=== PATIENT | female | born 1980 | race Caucasian/White ===

== ENCOUNTER 2017-02-08 09:42 | Emergency (ER) | payer MEDICAID ==
[2017-02-08 09:48] VITALS: BP 141/70
--- NOTE | 2017-02-08 10:03 | ER Document Report ---
ED Extremity Problem, Lower - General Chief Complaint: Ankle Pain Stated Complaint: FALL/LEFT FOOT PAIN Notes: The patient is a 37-year-old female, past medical history chronic back pain, presents with left ankle pain after she twisted it last night. She noticed increased swelling this morning. She denies numbness, tingling, open wounds or other injuries. TRAVEL OUTSIDE OF THE [place] IN LAST 30 DAYS: No - Related Data Allergies/Adverse Reactions: iodine [Iodine] Allergy (Verified 02/08/17 09:48) Past Medical History - General Information source: Patient - Social History Smoking Status: Current Every Day Smoker Chew tobacco use (# tins/day): No Frequency of alcohol use: None Drug Abuse: None Family History: Arthritis, CVA, Hyperlipidemia, Hypertension Pulmonary Medical History: Reports: Hx Pneumonia Neurological Medical History: Reports: Hx Migraine Renal/ Medical History: Denies: Hx Peritoneal Dialysis Musculoskeltal Medical History: Reports Hx Musculoskeletal Trauma Psychiatric Medical History: Reports: Hx Depression - anxiety Traumatic Medical History: Reports: Hx Spine Fracture Past Surgical History: Reports: Hx Section, Hx Orthopedic Surgery - C5- 6 FUSION - Immunizations Immunizations up to date: Yes Hx Diphtheria, Pertussis, Tetanus Vaccination: Yes Review of Systems - Review of Systems Notes: REVIEW OF SYSTEMS: CONSTITUTIONAL: -fevers, -chills EENT: -eye pain, -difficulty swallowing, -nasal congestion CARDIOVASCULAR:-chest pain, -syncope. RESPIRATORY: -cough, -SOB GASTROINTESTINAL: -abdominal pain, - nausea, -vomiting, -diarrhea GENITOURINARY: -dysuria, -hematuria MUSCULOSKELETAL: +left ankle pain, -back pain, -neck pain SKIN: -rash or skin lesions. HEMATOLOGIC: -easy bruising or bleeding. LYMPHATIC: -swollen, enlarged glands. NEUROLOGICAL: -altered mental status or loss of consciousness, -headache, - neurologic symptoms PSYCHIATRIC: -anxiety, -depression. ALL OTHER SYSTEMS REVIEWED AND NEGATIVE. Physical Exam - Vital signs Vitals: Temp Pulse Resp BP Pulse Ox 97.8 F 91 20 141/70 H 98 02/08/17 09:47 02/08/17 09:47 02/08/17 09:47 02/08/17 09:47 02/08/17 09:47 - Notes Notes: PHYSICAL EXAMINATION: GENERAL: Well-appearing, well-nourished and in no acute distress. HEAD: Atraumatic, normocephalic. EYES: Pupils equal round and reactive to light, extraocular movements intact, sclera anicteric, conjunctiva are normal. ENT: nares patent, oropharynx clear without exudates. Moist mucous membranes. NECK: Normal range of motion, supple without lymphadenopathy LUNGS: Breath sounds clear to auscultation bilaterally and equal. No wheezes rales or rhonchi. HEART: Regular rate and rhythm without murmurs ABDOMEN: Soft, nontender, normoactive bowel sounds. No guarding, no rebound. No masses appreciated. EXTREMITIES: Moderate left lateral ankle swelling and tenderness, N/V intact distally, no pitting or edema. No cyanosis. NEUROLOGICAL: Cranial nerves grossly intact. Normal speech. Normal sensory, motor, and reflex exams. PSYCH: Normal mood, normal affect. SKIN: Warm, Dry, normal turgor, no rashes or lesions noted. Course - Vital Signs Vital signs: Temp Pulse Resp BP Pulse Ox 97.8 F 91 20 141/70 H 98 02/08/17 09:47 02/08/17 09:47 02/08/17 09:47 02/08/17 09:47 02/08/17 09:47 - Diagnostic Test Radiology reviewed: Image reviewed, Reports reviewed Radiology results interpreted by me: Left ankle x-ray: Soft tissue swelling, no fractures Procedures - Immobilization Left Ankle Pre-Proc Neuro Vasc Exam: Normal Immobilizer type: Carl wrap, Crutches Performed by: PCT Post-Proc Neuro Vasc Exam: Normal Alignment checked and good: Yes Discharge - Discharge Clinical Impression: Left ankle sprain Qualifiers: Encounter type: initial encounter Involved ligament of ankle: unspecified ligament Qualified Code(s): S93.402A - Sprain of unspecified ligament of left ankle, initial encounter Condition: Stable Disposition: HOME, SELF-CARE Additional Instructions: SPRAIN: Your injury is a sprain. A sprain results from stretching or tearing of the ligaments, usually from a twisting injury. The ligaments will require time and protection in order to heal properly. Many sprains are quite disabling and should be taken seriously. The usual initial treatment of sprains is cold packs, elevation, and rest of the injured area. Your physician has assessed the seriousness of your ligament injury, and has outlined a treatment plan. Understand that this treatment may change, depending on how you progress. If a re-examination was recommended, it is important that you follow up as instructed. Call the doctor any time if there is severe pain, numbness, or loss of function in the injured area. CARL WRAP: A compression dressing (carl wrap) has been placed. This helps hold the area still. It limits swelling and internal bleeding. The wrap should be comfortably snug -- not tight. You should feel a sense of pressure, but not severe pain under the wrap. Unless the physician tells you otherwise, you can adjust the wrap for comfort. If the wrap causes symptoms suggesting it's too tight -- uncomfortable pressure, swelling or discoloration beyond the wrap, numbness, or severe pain - - you must loosen the wrap. If these symptoms don't resolve promptly, return for re-evaluation. SPRAINED ANKLE: Your sprained ankle results from stretching or tearing of the ligaments which support the ankle. This usually results from twisting the foot inward and under. The ligaments will require time and protection in order to heal properly. Many ankle sprains are quite disabling, and should be taken seriously. The usual treatment for an ankle sprain is cold packs; protection with tape , splints, or wraps; elevation; and staying off the ankle for at least a day. As the ankle improves, you can walk IF it's not painful to bear weight. Sports are best postponed until healing is complete. More serious sprains usually require strengthening exercises after early healing. Your physician has assessed the seriousness of the ligament injury to your ankle. However, the treatment may change, depending on how your ankle progresses. If further exams were recommended, it is important that you follow through. Call the doctor if your foot becomes numb, painful, or severely swollen. SOFT ANKLE SPLINT: You are to wear a cloth ankle splint. This type of splint uses the strength of the fabric to keep the ankle from twisting. The splint can be worn over a sock, if it's more comfortable. If the splint has an adjustable strap, the strap should come up over the OUTER side of the ankle. This strap should be pulled tight enough so you can't turn your ankle in towards you -- it should hold your foot so the sole can't be turned towards at the other foot. You should start out slow. Like a new shoe, the splint may take some "breaking in." You will get blisters if you are too active at first. No ankle brace provides absolute protection. You must avoid activities which put your ankle at risk. Work on strengthening your ankle -- strength is your best protection against re-injury. Call the doctor if you can't do your normal activities in the ankle brace. USE OF CRUTCHES: The doctor has recommended that you not bear weight at this time. You will need to use crutches. Adjust the crutches so the tops come to about two inches under the armpit while you are standing upright. Use your hands -- not your armpits -- to support your weight. To get into a chair, support yourself with one crutch on the injured side. Hold the chair with the other hand, then lower yourself while putting all your weight on the good leg. Going up stairs is `good leg up, step up, then bring up crutches and bad leg.' Down stairs is `bad leg and crutches down, then bring good leg down.' If you develop numbness or swelling in an arm or hand, you are using the crutches incorrectly. Return if you are having any problems with the crutches. ICE & ELEVATION: Apply ice packs frequently against the painful area. Many different schedules are recommended, such as "20 minutes on, 20 minutes off" or "one hour ice, two hours rest." If you need to work, you may need to go longer between ice treatments. You should plan to have the area ice packed AT LEAST one- fourth of the time. The ice should be applied over the wrap, tape, or splint, or over a layer of cloth -- not directly against the skin. Some ice bags have a built-in cloth and can be put directly on the skin. Your injured part should be elevated as much as possible over the next 48 hours. Try to keep the injury above the level of the heart. Avoid use of the injured area. Elevation and rest will decrease the swelling. USE OF [id number] IBUPROFEN: Ibuprofen (Advil, Nuprin, Medipren, Motrin IB) is a medication for fever and pain control. In addition, it has anti- inflammatory effects which may be beneficial, especially in the treatment of injuries. It's best to take ibuprofen with food. Persons with ulcer disease or allergy to aspirin should notify their physician of this before taking ibuprofen. Ibuprofen can be given every four to six hours, for a total of four doses daily. Age Pain or fever dose Antiinflammatory dose 6-8 yr 200 mg (1 tab) 200 mg (1 tab) 9-11 yr 200 mg (1 tab) 200-400 mg (1-2 tab) 11-14 yr 200-400 mg (1-2 tab) 400 mg (2 tab) 15-adult 400 mg (2 tab) 600 mg (3 tab) FOLLOW-UP CARE: If you have been referred to a physician for follow-up care, call the physician s office for an appointment as you were instructed or within the next two days. If you experience worsening or a significant change in your symptoms, notify the physician immediately or return to the Emergency Department at any time for re-evaluation. Referrals: CARMEN BROCK, [employer] GR[employer] WORKER-C [Primary Care Provider] - Follow up as needed DAYANA BAIRD DO [ACTIVE STAFF] - Follow up as needed
[2017-02-08] MEDS ORDERED: NAPROXEN 250 MG TABLET PO ONE (10:33)
== END 2017-02-08 10:55 | disposition home or self-care (01) ==
LOC: ER 09:42
DX: S93.402A Sprain of unspecified ligament of left ankle, initial encounter (principal); M25.572 Pain in left ankle and joints of left foot; M54.9 Dorsalgia, unspecified; G89.29 Other chronic pain; X58.XXXA Exposure to other specified factors, initial encounter; F17.200 Nicotine dependence, unspecified, uncomplicated
CPT/HCPCS: 99283; 73610; J3490

== ENCOUNTER 2018-03-29 05:15 | Emergency (ER) | payer OTHER ==
--- NOTE | 2018-03-29 06:28 | ER Document Report ---
ED General - General Chief Complaint: Ear Pain Stated Complaint: EAR/NOSE/THROAT PAIN Time Seen by Provider: 03/29/18 06:10 Mode of Arrival: Ambulatory Information source: Patient Notes: 38-year-old female presents with complaints of left earache sinus drainage. Patient notes the symptoms occur whenever she gets a sunburn, states she was sunburn last week and then the sore throat and earache started. Patient notes the earache kept her up all night. She denies any fevers or chills nausea vomiting or diarrhea. TRAVEL OUTSIDE OF THE [place] IN LAST 30 DAYS: No - HPI Onset: Last week Onset/Duration: Persistent Quality of pain: Achy Severity: Mild Pain Level: 1 Associated symptoms: Earache, Sinus pain/drainage Exacerbated by: Other - Sunburn Relieved by: Denies Similar symptoms previously: Yes Recently seen / treated by doctor: No - Related Data Allergies/Adverse Reactions: iodine [Iodine] Allergy (Verified 03/29/18 05:16) Past Medical History - Social History Smoking Status: Never Smoker Cigarette use (# per day): No Chew tobacco use (# tins/day): No Smoking Education Provided: No Family History: Arthritis, CVA, Hyperlipidemia, Hypertension, Malignancy. denies: CAD, COPD, DM, Thyroid Disfunction Patient has suicidal ideation: No Patient has homicidal ideation: No Pulmonary Medical History: Reports: Hx Bronchitis, Hx Pneumonia Neurological Medical History: Reports: Hx Migraine Renal/ Medical History: Denies: Hx Peritoneal Dialysis Musculoskeltal Medical History: Reports Hx Arthritis, Reports Hx Musculoskeletal Trauma Psychiatric Medical History: Reports: Hx Anxiety, Hx Depression - anxiety Traumatic Medical History: Reports: Hx Spine Fracture Past Surgical History: Reports: Hx Section, Hx Neurologic Surgery, Hx Orthopedic Surgery - C5-6 FUSION - Immunizations Immunizations up to date: Yes Hx Diphtheria, Pertussis, Tetanus Vaccination: Yes Review of Systems - Review of Systems Notes: REVIEW OF SYSTEMS: CONSTITUTIONAL : Denies fever, chills, or sweats. Denies recent illness. EENT: Admits to earache admits sinus drainage CARDIOVASCULAR: Denies chest pain. Denies palpitations or racing or irregular heart beat. Denies ankle edema. RESPIRATORY: Denies cough, cold, or chest congestion. Denies shortness of breath, difficulty breathing, or wheezing. GASTROINTESTINAL: Denies abdominal pain or distention. Denies nausea, vomiting , or diarrhea. Denies blood in vomitus, stools, or per rectum. Denies black, tarry stools. Denies constipation. GENITOURINARY: Denies difficulty urinating, painful urination, burning, frequency, blood in urine, or discharge. FEMALE GENITOURINARY: Denies vaginal bleeding, heavy or abnormal periods, irregular periods. Denies vaginal discharge or odor. MUSCULOSKELETAL: Denies back or neck pain or stiffness. Denies joint pain or swelling. SKIN: Denies rash, lesions or sores. HEMATOLOGIC : Denies easy bruising or bleeding. LYMPHATIC: Denies swollen, enlarged glands. NEUROLOGICAL: Denies confusion or altered mental status. Denies passing out or loss of consciousness. Denies dizziness or lightheadedness. Denies headache. Denies weakness or paralysis or loss of use of either side. Denies problems with gait or speech. Denies sensory loss, numbness, or tingling. Denies seizures. PSYCHIATRIC: Denies anxiety or stress. Denies depression, suicidal ideation, or homicidal ideation. ALL OTHER SYSTEMS REVIEWED AND NEGATIVE. PHYSICAL EXAMINATION: GENERAL: Well-appearing, well-nourished and in no acute distress. HEAD: Atraumatic, normocephalic. EYES: Pupils equal round and reactive to light, extraocular movements intact, conjunctiva are normal. ENT: Nares patent, oropharynx clear without exudates. Moist mucous membranes. No mastoid tenderness NECK: Normal range of motion, supple without lymphadenopathy no masses LUNGS: Breath sounds clear to auscultation bilaterally and equal. No wheezes rales or rhonchi. HEART: Regular rate and rhythm without murmurs ABDOMEN: Soft, nontender, nondistended abdomen. No guarding, no rebound. No masses appreciated. Female : deferred Musculoskeletal: Normal range of motion, no pitting or edema. No cyanosis. NEUROLOGICAL: Cranial nerves grossly intact. Normal speech, normal gait. Normal sensory, motor exams PSYCH: Normal mood, normal affect. SKIN: Mild sun burn noted Dictation was performed using [employer] voice recognition software Physical Exam - Vital signs Vitals: Temp Pulse Resp BP Pulse Ox 98.8 F 73 16 111/58 L 98 03/29/18 06:35 03/29/18 06:35 03/29/18 06:35 03/29/18 06:35 03/29/18 06:35 Course - Re-evaluation Re-evalutation: 03/29/18 07:37 Patient's examination is completely benign, she is sleeping comfortably upon my evaluation of her, she requests pain control for her earache, I do not see any sign of infection, evaluation of her [place] drug database notes she has not received any narcotics or controlled substances After performing a Medical Screening Examination, I estimate there is LOW risk for malignant otitis media, mastoiditis, MENINGITIS, or ACUTE CORONARY SYNDROME , thus I consider the discharge disposition reasonable. I have reevaluated this patient multiple times and no significant life threatening changes are noted. The patient and I have discussed the diagnosis and risks, and we agree with discharging home to follow-up on an outpatient basis with the understanding that symptoms and presentations can change. We also discussed returning to the Emergency Department immediately if new or worsening symptoms occur. We have discussed the symptoms which are most concerning (e.g., high fevers, confusion) that necessitate immediate return. - Vital Signs Vital signs: Temp Pulse Resp BP Pulse Ox 98.8 F 73 16 111/58 L 98 03/29/18 06:35 03/29/18 06:35 03/29/18 06:35 03/29/18 06:35 03/29/18 06:35 Discharge - Discharge Clinical Impression: Ear pain, left, Sunburn Condition: Stable Disposition: HOME, SELF-CARE Additional Instructions: Please follow up immediately if there are any other concerns Prescriptions: Tramadol HCl 50 mg PO Q8 #10 tablet Referrals: MINESH JONES PA-C [Primary Care Provider] - Follow up as needed
[2018-03-29 06:36] VITALS: BP 111/58
== END 2018-03-29 06:36 | disposition home or self-care (01) ==
LOC: ER 05:15
DX: H92.02 Otalgia, left ear (principal); L55.9 Sunburn, unspecified; Z98.1 Arthrodesis status
CPT/HCPCS: 99282

== ENCOUNTER 2018-06-24 11:48 | Emergency (ER) | payer OTHER ==
[2018-06-24] MEDS ORDERED: ASPIRIN 81 MG TABLET, CHEWABLE PO ONE (12:18)
[2018-06-24] MEDS ORDERED: NORMAL SALINE 1000 ML 1,000 ML IV PRN (12:19)
--- NOTE | 2018-06-24 12:21 | ER Document Report ---
ED Medical Screen (RME) - General Chief Complaint: Headache Stated Complaint: HEADACHE, WEAK Time Seen by Provider: 06/24/18 12:18 Notes: 38 years old female presents today with history of lightheadedness and dizziness general weakness and malaise since last Friday. She had a skin biopsy done on Friday and was given lidocaine with epi. She is nauseous but no vomiting. On and off chest pain with difficulty in breathing. Denies any fever chills or other constitutional symptoms. Denies any dysuria frequency urgency. On examination-appears weak. Otherwise normal exam TRAVEL OUTSIDE OF THE [place] IN LAST 30 DAYS: No - Related Data Allergies/Adverse Reactions: iodine [Iodine] Allergy (Verified 03/29/18 05:16) Past Medical History - Social History Chew tobacco use (# tins/day): No Frequency of alcohol use: None Drug Abuse: None Pulmonary Medical History: Reports: Hx Bronchitis, Hx Pneumonia Neurological Medical History: Reports: Hx Migraine Renal/ Medical History: Denies: Hx Peritoneal Dialysis Musculoskeltal Medical History: Reports Hx Arthritis, Reports Hx Musculoskeletal Trauma Psychiatric Medical History: Reports: Hx Anxiety, Hx Depression - anxiety Traumatic Medical History: Reports: Hx Spine Fracture Past Surgical History: Reports: Hx Section, Hx Neurologic Surgery, Hx Orthopedic Surgery - C5-6 FUSION - Immunizations Immunizations up to date: Yes Hx Diphtheria, Pertussis, Tetanus Vaccination: Yes Physical Exam - Vital signs Vitals: Temp Pulse Resp BP Pulse Ox 98.0 F 75 16 128/89 H 97 06/24/18 11:59 06/24/18 11:59 06/24/18 11:59 06/24/18 11:59 06/24/18 11:59 Course - Vital Signs Vital signs: Temp Pulse Resp BP Pulse Ox 98.0 F 75 16 128/89 H 97 06/24/18 11:59 06/24/18 11:59 06/24/18 11:59 06/24/18 11:59 06/24/18 11:59 Doctor's Discharge - Discharge Referrals: MINESH JONES PA-C [Primary Care Provider] - Follow up as needed
[2018-06-24 13:16] LABS: ABSOLUTE BASOPHILS # (AUTO) 0.1 10^3/uL (0.0-0.2); ABSOLUTE EOSINOPHILS # (AUTO) 0.3 10^3/uL (0.0-0.6); ABSOLUTE LYMPHOCYTES (AUTO) 2.4 10^3/uL (0.5-4.7); ABSOLUTE MONOCYTES (AUTO) 0.4 10^3/uL (0.1-1.4); ABSOLUTE NEUT (AUTO) 5.9 10^3/uL (1.7-8.2); BASOPHILS % (AUTO) 0.6 % (0-2); EOSINOPHILS % (AUTO) 3.7 % (0-6); HEMATOCRIT 48.9 % (36.0-47.0); HEMOGLOBIN 16.7 g/dL (12.0-15.5); LYMPHOCYTES % (AUTO) 26.4 % (13-45); MEAN CORPUSCULAR HEMOGLOBIN 31.5 pg (27.0-33.4); MEAN CORPUSCULAR HGB CONC 34.1 g/dL (32.0-36.0); MEAN CORPUSCULAR VOLUME 92 fl (80-97); MONOCYTES % (AUTO) 4.9 % (3-13); PLATELET COUNT 250 10^3/uL (150-450); RED CELL DISTRIBUTION WIDTH 12.9 % (11.5-14.0); SEGMENTED NEUTROPHILS % (AUTO) 64.4 % (42-78); TOTAL CELLS COUNTED % (AUTO) 100 %; WHITE BLOOD COUNT 9.1 10^3/uL (4.0-10.5)
[2018-06-24 13:33] LABS: ALANINE AMINOTRANSFERASE 22 U/L (9-52); ALBUMIN 4.4 g/dL (3.5-5.0); ALKALINE PHOSPHATASE 67 U/L (38-126); ANION GAP 12 (5-19); ASPARTATE AMINO TRANSFERASE 23 U/L (14-36); BILIRUBIN,DIRECT 0.2 mg/dL (0.0-0.4); BILIRUBIN,TOTAL 0.8 mg/dL (0.2-1.3); BLOOD UREA NITROGEN 12 mg/dL (7-20); CALCIUM 9.7 mg/dL (8.4-10.2); CARBON DIOXIDE 27 mmol/L (22-30); CHLORIDE 106 mmol/L (98-107); CREATINE KINASE 81 U/L (30-135); GLUCOSE 93 mg/dL (75-110); POTASSIUM 4.2 mmol/L (3.6-5.0); SODIUM 145.3 mmol/L (137-145); TOTAL PROTEIN 7.8 g/dL (6.3-8.2)
[2018-06-24 13:44] LABS: CREATINE KINASE MB 0.66 ng/mL (<4.55)
[2018-06-24 13:45] LABS: TROPONIN I < 0.012 ng/mL
[2018-06-24] MEDS ORDERED: NORMAL SALINE 1000 ML 1,000 ML IV ONE (14:16)
--- NOTE | 2018-06-24 14:36 | RADIOLOGY REPORT (SQ) ---
EXAM DESCRIPTION: CHEST SINGLE VIEW COMPLETED DATE/TIME: 06/24/2018 2:25 pm REASON FOR STUDY: Chest pain COMPARISON: 01/27/2017. EXAM PARAMETERS: NUMBER OF VIEWS: One view. TECHNIQUE: Single frontal radiographic view of the chest acquired. RADIATION DOSE: NA LIMITATIONS: None. FINDINGS: LUNGS AND PLEURA: No opacities, masses or pneumothorax. No pleural effusion. MEDIASTINUM AND HILAR STRUCTURES: No masses. Contour normal. HEART AND VASCULAR STRUCTURES: Heart normal in size. Normal vasculature. BONES: No acute findings. HARDWARE: None in the chest. OTHER: No other significant finding. IMPRESSION: NO ACUTE RADIOGRAPHIC FINDING IN THE CHEST. TECHNICAL DOCUMENTATION: JOB ID: [id number] [employer]- All Rights Reserved Reading location - IP/workstation name: [email or web address]
[2018-06-24 16:21] LABS: APPEARANCE,URINE SLIGHTLY-CLOUDY; BILIRUBIN,URINE NEGATIVE (NEGATIVE); GLUCOSE, URINE NEGATIVE (NEGATIVE); KETONES,URINE NEGATIVE (NEGATIVE); LEUKOCYTE ESTERASE,URINE NEGATIVE (NEGATIVE); NITRITE,URINE NEGATIVE (NEGATIVE); PROTEIN,URINE NEGATIVE (NEGATIVE); URINE SPECIFIC GRAVITY 1.027; UROBILINOGEN,URINE NEGATIVE mg/dL (<2.0)
[2018-06-24 16:27] LABS: COLOR,URINE YELLOW
[2018-06-24 16:34] LABS: URINE AMPHETAMINES SCREEN UNCONFIRMED POSITIVE; URINE BARBITURATES SCREEN NEGATIVE; URINE BENZODIAZEPINES SCREEN NEGATIVE; URINE COCAINE SCREEN NEGATIVE; URINE MARIJUANA (THC) SCREEN NEGATIVE; URINE METHADONE SCREEN NEGATIVE; URINE PHENCYCLIDINE SCREEN NEGATIVE
--- NOTE | 2018-06-24 16:48 | ER Document Report ---
ED General - General Chief Complaint: Headache Stated Complaint: HEADACHE, WEAK Time Seen by Provider: 06/24/18 12:18 TRAVEL OUTSIDE OF THE [place] IN LAST 30 DAYS: No - HPI Patient complains to provider of: Headache weakness Notes: Overall home is patient states she has skin biopsy performed on her forehead on Friday since that time is feeling weak with a headache. Patient states she was given lidocaine with epinephrine. Patient denies any fever chills nausea vomiting diarrhea. Patient resting comfortably upon my evaluation patient states that she has been on phentermine and states that her PCP thinks that this may have a possible reaction. Patient otherwise denies any other symptoms recent travel recent antibiotics. - Related Data Allergies/Adverse Reactions: iodine [Iodine] Allergy (Verified 03/29/18 05:16) Past Medical History - Social History Smoking Status: Never Smoker Chew tobacco use (# tins/day): No Frequency of alcohol use: None Drug Abuse: None Family History: Arthritis, CVA, Hyperlipidemia, Hypertension, Malignancy. denies: CAD, COPD, DM, Thyroid Disfunction Patient has suicidal ideation: No Patient has homicidal ideation: No Pulmonary Medical History: Reports: Hx Bronchitis, Hx Pneumonia Neurological Medical History: Reports: Hx Migraine Renal/ Medical History: Denies: Hx Peritoneal Dialysis Musculoskeletal Medical History: Reports Hx Arthritis, Reports Hx Musculoskeletal Trauma Psychiatric Medical History: Reports: Hx Anxiety, Hx Depression - anxiety Traumatic Medical History: Reports: Hx Spine Fracture Past Surgical History: Reports: Hx Section, Hx Neurologic Surgery, Hx Orthopedic Surgery - C5-6 FUSION - Immunizations Immunizations up to date: Yes Hx Diphtheria, Pertussis, Tetanus Vaccination: Yes Review of Systems - Review of Systems Constitutional: Weakness EENT: No symptoms reported Cardiovascular: No symptoms reported Respiratory: No symptoms reported Gastrointestinal: No symptoms reported Genitourinary: No symptoms reported Female Genitourinary: No symptoms reported Musculoskeletal: No symptoms reported Skin: No symptoms reported Hematologic/Lymphatic: No symptoms reported Neurological/Psychological: No symptoms reported, Headaches -: Yes All other systems reviewed and negative Physical Exam - Vital signs Vitals: Temp Pulse Resp BP Pulse Ox 98.0 F 75 16 128/89 H 97 06/24/18 11:59 06/24/18 11:59 06/24/18 11:59 06/24/18 11:59 06/24/18 11:59 Interpretation: Normal - General General appearance: Appears well, Alert - HEENT Head: Normocephalic, Atraumatic Eyes: Normal Pupils: PERRL - Respiratory Respiratory status: No respiratory distress Chest status: Nontender Breath sounds: Normal Chest palpation: Normal - Cardiovascular Rhythm: Regular Heart sounds: Normal auscultation Murmur: No - Abdominal Inspection: Normal Distension: No distension Bowel sounds: Normal Tenderness: Nontender Organomegaly: No organomegaly - Back Back: Normal, Nontender - Extremities General upper extremity: Normal inspection, Nontender, Normal color, Normal ROM , Normal temperature General lower extremity: Normal inspection, Nontender, Normal color, Normal ROM , Normal temperature, Normal weight bearing. No: Haley's sign - Neurological Neuro grossly intact: Yes Cognition: Normal Orientation: AAOx4 Tessy Coma Scale Eye Opening: Spontaneous Tessy Coma Scale Verbal: Oriented Tessy Coma Scale Motor: Obeys Commands Tessy Coma Scale Total: 15 Speech: Normal Motor strength normal: LUE, RUE, LLE, RLE Sensory: Normal - Psychological Associated symptoms: Normal affect, Normal mood - Skin Skin Temperature: Warm Skin Moisture: Dry Skin Color: Normal Course - Re-evaluation Re-evalutation: 06/24/18 23:08 Laboratory studies should hemoconcentration otherwise no critical pathology seen. Patient was educated about phentermine use and recommended that she discuss phentermine use with her physician further. Patient states understanding feeling better after IV fluids. Patient will be discharged home. - Vital Signs Vital signs: Temp Pulse Resp BP Pulse Ox 98.0 F 75 16 126/84 H 100 06/24/18 17:07 06/24/18 17:07 06/24/18 11:59 06/24/18 17:07 06/24/18 17:07 - Laboratory Result Diagrams: 06/24/18 13:00 06/24/18 13:00 Laboratory results interpreted by me: 06/24/18 06/24/18 13:00 13:00 RBC 5.30 H Hgb 16.7 H Hct 48.9 H Sodium 145.3 H Discharge - Discharge Clinical Impression: Weakness, Dehydration Condition: Good Disposition: HOME, SELF-CARE Instructions: Dehydration ([facility]), Weakness ([facility]) Additional Instructions: Your evaluation today shows no critical pathology except for slight dehydration. I recommend she follow-up with her primary care physician. Please make sure drinking plenty of fluids to stay well hydrated. Return to ER symptoms worsen. Forms: Return to Work Referrals: MINESH JONES PA-C [ALLIED HEALTH PROFESSIONAL] - Follow up as needed
[2018-06-24 17:10] VITALS: BP 126/84
--- NOTE | 2018-06-24 21:29 | EKG REPORT ---
SEVERITY:- NORMAL ECG - SINUS RHYTHM : Confirmed by: Ofelia Bryant MD 24-Jun-2018 21:29:18
== END 2018-06-24 17:41 | disposition home or self-care (01) ==
LOC: ER 11:48
DX: E86.0 Dehydration (principal); R51 Headache; R53.1 Weakness; Z98.890 Other specified postprocedural states; Z79.899 Other long term (current) drug therapy
CPT/HCPCS: 93005; 99284; 96360; 96361; 36415; 82553; 82550; 84703; 85025; 80053; 81001; 84484; 80307; 85379; 71045; 93010; J7030

== ENCOUNTER 2019-02-27 07:52 | Emergency (ER) | payer OTHER ==
[2019-02-27] MEDS ORDERED: ASPIRIN 81 MG TABLET, CHEWABLE PO ONE (08:27)
--- NOTE | 2019-02-27 08:56 | ER Document Report ---
ED Cardiac - General Chief Complaint: Chest Pain Stated Complaint: CHEST PAIN Time Seen by Provider: 02/27/19 08:33 Primary Care Provider: DEMETRICE ROTHMAN PA-C [NO LOCAL MD] - Follow up as needed Mode of Arrival: Ambulatory Information source: Patient TRAVEL OUTSIDE OF THE [place] IN LAST 30 DAYS: No - HPI Patient complains to provider of: Chest pain, Other - Right ear pain, throat pain Notes: Patient is here with multiple complaints. 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 She states that yesterday she developed some pain in her right ear and occasional pain in the right side of her throat with swallowing. This morning she started coughing a lot and since she has been coug rebekah, she has developed sharp pain in the right upper chest. She denies any shortness of breath. No syncope. She states that she felt like she may have had a fever yesterday, but she reports that it was only 99. She denies any difficulty breathing or swallowing. No abdominal pain. No nausea, vomiting, diarrhea. The pain in her chest is intermittent, sharp, moderate, worse with cough. The pain in her ear is constant, mild, worse with swallowing. Nothing in particular makes symptoms better. She denies any rash. She is a former smoker. She denies drug use. She denies a history of hypertension, high cholesterol, diabetes, CAD. She has family history of CAD. She denies any recent long trips or surgeries, leg pain or leg swelling, hormone use, cancer, history of DVT or PE. No other complaints at this moment. - Related Data Allergies/Adverse Reactions: iodine [Iodine] Allergy (Verified 02/27/19 07:52) Past Medical History - Social History Smoking Status: Former Smoker Family History: Arthritis, CVA, Hyperlipidemia, Hypertension, Malignancy. denies: CAD, COPD, DM, Thyroid Disfunction Pulmonary Medical History: Reports: Hx Bronchitis, Hx Pneumonia Neurological Medical History: Reports: Hx Migraine Renal/ Medical History: Denies: Hx Peritoneal Dialysis Musculoskeletal Medical History: Reports Hx Arthritis, Reports Hx Musculoskeleta l Trauma Psychiatric Medical History: Reports: Hx Anxiety, Hx Depression - anxiety Traumatic Medical History: Reports: Hx Spine Fracture Past Surgical History: Reports: Hx Section, Hx Neurologic Surgery, Hx Orthopedic Surgery - C5-6 FUSION - Immunizations Immunizations up to date: Yes Hx Diphtheria, Pertussis, Tetanus Vaccination: Yes Review of Systems - Review of Systems -: Yes All other systems reviewed and negative Physical Exam - Vital signs Vitals: Temp Pulse Resp BP Pulse Ox 97.5 F 73 16 138/87 H 98 02/27/19 07:56 02/27/19 07:56 02/27/19 07:56 02/27/19 07:56 02/27/19 07:56 - Notes Notes: GENERAL: alert, cooperative, nontoxic, no distress. HEAD: normocephalic, atraumatic EYES: conjunctiva pink without discharge, no external redness or swelling. EARS: no external swelling, no external redness, no mastoid redness, swelling, tenderness. Ear canals are clear without swelling or drainage. TMs pearly terrazas, no redness, no bulging, normal landmarks, no perforation. Clear effusion behind both TMs. NOSE: atraumatic, no external swelling. clear rhinorrhea noted. MOUTH/THROAT: mucous membranes moist and pink, posterior pharynx without dawna thema, swelling, exudate. No trismus or drooling. NECK: soft, supple, full range of motion, no meningismus. CHEST: no distress, lungs clear and equal throughout. No wheezing, rales, rhonchi. Right upper anterior chest wall tenderness to palpation. CARDIAC: regular rate and rhythm, no murmur, normal capillary refill, normal pulses. No peripheral edema noted. BACK: full range of motion, no CVA tenderness. EXTREMITIES: full range of motion of all extremities. No redness, no swelling. NEURO: alert and oriented A&O3, no focal deficits, full range of motion of all extremities. PYSCH: appropriate mood, affect. Patient is cooperative. SKIN: pink, warm, dry, no rash. Course - Re-evaluation Re-evalutation: 02/27/19 08:55 Patient has no risk factors for pulmonary embolism. Wells criteria for PE is negative. PERC rule negative for PE. 02/27/19 10:25 Patient is resting comfortably at this time. Heart score is 1. This makes her low risk for MACE. Currently troponin negative, chest x-ray negative, EKG normal. We will repeat a troponin, if this is negative, believe that the patient can be discharged home. This point the pain is reproducible with palpation of the right upper chest wall and worse with cough and seems to be musculoskeletal in nature. I have ordered her some Toradol. I have gone over results with the patient and the plan. She verbalized understanding. 02/27/19 13:43 Patient is nontoxic-appearing with stable vitals. She continues to be resting comfortably at this time. I have gone over all of her results. Questions been answered. Patient here with complaints of right-sided chest pain that started this morning after coughing. No significant shortness of breath. She was also complained of some ear pain and sore throat. Rapid strep is negative. She is noted to have effusion behind her TMs. She has right sided reproducible chest wall tenderness to palpation. Lungs are clear. Vitals are stable. She is not hypoxic or tachypneic. EKG is normal. Troponin is negative. Delta troponin is negative. The remainder of her labs are unremarkable. Patient has no PE risk factors, PERC rule negative for PE, heart score is 1. Pain seems to be muscular skeletal nature likely from coughing. At this point believe the patient can be discharged home with a prescription for Naprosyn and Tessalon. Instructions to follow-up with her primary care doctor at the next available appointment for reevaluation. Follow-up sooner for worsening pain, fever, difficulty breathing or swallowing, persistent vomiting, or for any further concerns. The patient's emergency department workup and current diagnosis were explained to the patient and or family. Follow-up instructions were provided. Me dications if prescribed were discussed. Instructions for when to return to the emergency department including specific worrisome symptoms were discussed with the patient and/or family. - Vital Signs Vital signs: Temp Pulse Resp BP Pulse Ox 97.5 F 73 20 119/69 99 02/27/19 07:56 02/27/19 07:56 02/27/19 13:01 02/27/19 13:01 02/27/19 13:01 - Laboratory Result Diagrams: 02/27/19 09:02 02/27/19 09:02 Laboratory results interpreted by me: 02/27/19 09:02 Chloride 109 H - Diagnostic Test Radiology reviewed: Image reviewed, Reports reviewed - Negative chest x-ray - EKG Interpretation by Me EKG shows normal: Sinus rhythm, [place], Intervals, QRS Complexes, ST-T Waves Rate: Normal When compared to previous EKG there are: Other - Rate of 69. No STEMI. Discharge - Discharge Clinical Impression: Chest pain Qualifiers: Chest pain type: unspecified Qualified Code(s): R07.9 - Chest pain, unspecified URI (upper respiratory infection) Qualifiers: URI type: unspecified viral URI Qualified Code(s): J06.9 - Acute upper respiratory infection, unspecified Condition: Stable Disposition: HOME, SELF-CARE Instructions: Upper Respiratory Illness ([facility]), Chest Pain of Unclear Cause ([facility]) Additional Instructions: Take medication as prescribed. Drink plenty fluids. Follow-up with your primary care doctor at the next available appointment for reevaluation. Follow- up sooner for worsening pain, fever, significant trouble breathing, or for any further concerns. Prescriptions: Benzonatate [Tessalon [place] 100 mg Capsule] 100 mg PO Q8HP PRN #20 cap PRN Reason: Naproxen [Naprosyn] 500 mg PO BID #20 tablet Referrals: DEMETRICE ROTHMAN PA-C [NO LOCAL MD] - Follow up as needed
--- NOTE | 2019-02-27 08:58 | RADIOLOGY REPORT (SQ) ---
EXAM DESCRIPTION: CHEST SINGLE VIEW COMPLETED DATE/TIME: 02/27/2019 8:46 am REASON FOR STUDY: cp COMPARISON: 2017 NUMBER OF VIEWS: One view. TECHNIQUE: Single frontal radiographic view of the chest acquired. LIMITATIONS: None. FINDINGS: LUNGS AND PLEURA: No opacities, masses or pneumothorax. No pleural effusion. MEDIASTINUM AND HILAR STRUCTURES: No masses. Contour normal. HEART AND VASCULAR STRUCTURES: Heart normal in size. Normal vasculature. BONES: No acute findings. HARDWARE: None in the chest. OTHER: No other significant finding. IMPRESSION: NO SIGNIFICANT RADIOGRAPHIC FINDING IN THE CHEST. TECHNICAL DOCUMENTATION: JOB ID: [id number] [employer]- All Rights Reserved Reading location - IP/workstation name: [email or web address]
[2019-02-27 09:16] LABS: ABSOLUTE BASOPHILS # (AUTO) 0.1 10^3/uL (0.0-0.2); ABSOLUTE EOSINOPHILS # (AUTO) 0.2 10^3/uL (0.0-0.6); ABSOLUTE LYMPHOCYTES (AUTO) 1.9 10^3/uL (0.5-4.7); ABSOLUTE MONOCYTES (AUTO) 0.4 10^3/uL (0.1-1.4); BASOPHILS % (AUTO) 0.7 % (0-2); EOSINOPHILS % (AUTO) 3.1 % (0-6); HEMATOCRIT 41.6 % (36.0-47.0); HEMOGLOBIN 14.3 g/dL (12.0-15.5); LYMPHOCYTES % (AUTO) 25.3 % (13-45); MEAN CORPUSCULAR HEMOGLOBIN 31.8 pg (27.0-33.4); MEAN CORPUSCULAR HGB CONC 34.4 g/dL (32.0-36.0); MEAN CORPUSCULAR VOLUME 92 fl (80-97); MONOCYTES % (AUTO) 4.9 % (3-13); PLATELET COUNT 204 10^3/uL (150-450); RED CELL DISTRIBUTION WIDTH 12.5 % (11.5-14.0); TOTAL CELLS COUNTED % (AUTO) 100 %; WHITE BLOOD COUNT 7.6 10^3/uL (4.0-10.5)
[2019-02-27 09:38] LABS: ALANINE AMINOTRANSFERASE 25 U/L (9-52); ALBUMIN 3.8 g/dL (3.5-5.0); ALKALINE PHOSPHATASE 47 U/L (38-126); ANION GAP 5 (5-19); ASPARTATE AMINO TRANSFERASE 28 U/L (14-36); BILIRUBIN,DIRECT 0.2 mg/dL (0.0-0.4); BILIRUBIN,TOTAL 0.7 mg/dL (0.2-1.3); BLOOD UREA NITROGEN 15 mg/dL (7-20); CALCIUM 8.9 mg/dL (8.4-10.2); CARBON DIOXIDE 26 mmol/L (22-30); CHLORIDE 109 mmol/L (98-107); CREATINE KINASE 129 U/L (30-135); GLUCOSE 91 mg/dL (75-110); POTASSIUM 3.9 mmol/L (3.6-5.0); SODIUM 140.4 mmol/L (137-145); TOTAL PROTEIN 6.9 g/dL (6.3-8.2)
[2019-02-27 09:48] LABS: CREATINE KINASE MB 2.16 ng/mL (<4.55)
[2019-02-27 09:49] LABS: TROPONIN I < 0.012 ng/mL
[2019-02-27] MEDS ORDERED: KETOROLAC TROMETHAMINE 60 MG/2 ML SDV IV ONE (10:24)
--- NOTE | 2019-02-27 13:12 | EKG REPORT ---
SEVERITY:- NORMAL ECG - SINUS RHYTHM : Confirmed by: Christopher Lay 27-Feb-2019 13:12:04
[2019-02-27 13:36] VITALS: BP 119/69
== END 2019-02-27 14:04 | disposition home or self-care (01) ==
LOC: ER 07:52
DX: R07.9 Chest pain, unspecified (principal); J06.9 Acute upper respiratory infection, unspecified; H92.01 Otalgia, right ear; J02.9 Acute pharyngitis, unspecified; J34.89 Other specified disorders of nose and nasal sinuses; Z87.891 Personal history of nicotine dependence; Z82.49 Family history of ischemic heart disease and other diseases of the circulatory system; Z88.8 Allergy status to other drugs, medicaments and biological substances
CPT/HCPCS: 93005; 99284; 96374; 36415; 87070; 82553; 87880; 82550; 85025; 80053; 84484; 71045; 93010; J1885

== ENCOUNTER 2019-06-28 16:39 | Emergency (ER) | payer OTHER ==
[2019-06-28] MEDS ORDERED: IBUPROFEN 600 MG TABLET PO ONE (17:03)
[2019-06-28 17:06] VITALS: BP 126/78
--- NOTE | 2019-06-28 17:07 | ER Document Report ---
HPI - HPI Time Seen by Provider: 06/28/19 17:00 Pain Level: 2 Notes: Patient is an otherwise healthy 39-year-old female presenting to the emergency department chief complaint of left ankle pain. Patient reports she was walking through his sandpit when she excellently stepped into a hole twisting her ankle. She reports significant pain and swelling at the site. - REPRODUCTIVE Reproductive: DENIES: : Past Medical History - General Information source: Patient - Social History Smoking Status: Never Smoker Frequency of alcohol use: None Drug Abuse: None Family History: Arthritis, CVA, Hyperlipidemia, Hypertension, Malignancy. denies: CAD, COPD, DM, Thyroid Disfunction Pulmonary Medical History: Reports: Hx Bronchitis, Hx Pneumonia Neurological Medical History: Reports: Hx Migraine Renal/ Medical History: Denies: Hx Peritoneal Dialysis Musculoskeletal Medical History: Reports Hx Arthritis, Reports Hx Musculoskeletal Trauma Psychiatric Medical History: Reports: Hx Anxiety, Hx Depression - anxiety Traumatic Medical History: Reports: Hx Spine Fracture Past Surgical History: Reports: Hx Section, Hx Neurologic Surgery, Hx Orthopedic Surgery - C5-6 FUSION - Immunizations Immunizations up to date: Yes Hx Diphtheria, Pertussis, Tetanus Vaccination: Yes Vertical Provider Document - CONSTITUTIONAL Notes: PHYSICAL EXAMINATION: GENERAL: Well-appearing, well-nourished and in no acute distress. HEAD: Atraumatic, normocephalic. EYES: Pupils equal round extraocular movements intact, conjunctiva are normal. ENT: Nares patent NECK: Normal range of motion LUNGS: No respiratory distress Musculoskeletal: Limited range of motion to left ankle, swelling noted to left lateral ankle, cap refill less than 3 seconds, normal sensation distal to injury, strong dorsalis pedis pulse. NEUROLOGICAL: Normal speech, normal gait. PSYCH: Normal mood, normal affect. SKIN: Warm, Dry, normal turgor, no rashes or lesions noted. - INFECTION CONTROL TRAVEL OUTSIDE OF THE [place] IN LAST 30 DAYS: No Course - Re-evaluation Re-evalutation: Ankle X-Ray 06/28/19 17:03 IMPRESSION: No evidence of acute osseous injury. Procedures - Immobilization Left Ankle Immobilizer type: Ankle stirrup, Crutches Performed by: Provider Post-Proc Neuro Vasc Exam: Normal Alignment checked and good: Yes Discharge - Discharge Clinical Impression: Ankle sprain Qualifiers: Encounter type: initial encounter Involved ligament of ankle: unspecified ligament Laterality: left Qualified Code(s): S93.402A - Sprain of unspecified ligament of left ankle, initial encounter Condition: Stable Disposition: HOME, SELF-CARE Additional Instructions: Your x-ray does not show any acute fracture. You have a sprained ankle. Keep the area elevated, apply ice 20 minutes every 2 hours, and use crutches as needed. You should take ibuprofen 600 mg every 6 hours as needed for pain. Please return if you have worsening pain and swelling, fever greater than 101, you notice spreading redness from the area, or have any other symptoms that are concerning to you. Please follow-up with orthopedic surgery if your symptoms have not improved in the next 2-3 weeks. Forms: Return to Work Referrals: AARTI PRESLEY PA-C [Primary Care Provider] - Follow up as needed
--- NOTE | 2019-06-28 17:28 | RADIOLOGY REPORT (SQ) ---
EXAM DESCRIPTION: ANKLE LEFT COMPLETE COMPLETED DATE/TIME: 06/28/2019 5:15 pm REASON FOR STUDY: left ankle pain s/p injury COMPARISON: 02/08/2017 NUMBER OF VIEWS: Three views. TECHNIQUE: AP, lateral, and oblique radiographic images acquired of the left ankle. LIMITATIONS: None. FINDINGS: MINERALIZATION: Normal. BONES: No acute fracture or dislocation. No worrisome bone lesions. Incidental note is again made o f an ossicle adjacent to the distal fibula, consistent with sequela of remote trauma. 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 Tibiotalar degenerative changes are present. JOINTS: No effusions. SOFT TISSUES: No soft tissue swelling. No foreign body. OTHER: No other significant finding. IMPRESSION: No evidence of acute osseous injury. TECHNICAL DOCUMENTATION: JOB ID: [id number] [employer]- All Rights Reserved Reading location - IP/workstation name: [email or web address]
== END 2019-06-28 18:12 | disposition home or self-care (01) ==
LOC: ER 16:39
DX: S93.402A Sprain of unspecified ligament of left ankle, initial encounter (principal); X50.1XXA Overexertion from prolonged static or awkward postures, initial encounter; Y92.007 Garden or yard of unspecified non-institutional (private) residence as the place of occurrence of the external cause
CPT/HCPCS: 99283; 73610; L1902

== ENCOUNTER 2019-08-06 14:25 | Emergency (ER) | payer OTHER ==
[2019-08-06 14:30] VITALS: BP 134/75
[2019-08-06] MEDS ORDERED: LIDOCAINE 1% INJ-PF (10 MG/ML) 30 ML SDV INJ ONE (15:00)
[2019-08-06] MEDS ORDERED: DEXAMETHASONE SOD PHOS INJ 10 MG/1 ML VIAL IM ONE (15:00)
[2019-08-06] MEDS ORDERED: CEFTRIAXONE INJ 1000 MG VIAL IM ONE (15:00)
--- NOTE | 2019-08-06 15:06 | ER Document Report ---
HPI - HPI Time Seen by Provider: 08/06/19 14:41 Pain Level: 4 Context: Patient is a 39-year-old female who presents to the emergency department with a chief complaint of right ear pain. She states that she was diagnosed with acute otitis media about 7 days ago. She is currently on Augmentin. Patient states that she has been coughing and her symptoms are not any better. - CONSTITUTIONAL Constitutional: REPORTS: Fever. DENIES: Chills - EENT EENT: REPORTS: Sore Throat, Ear Pain, Nasal Drainage-Clear, Congestion - CARDIOVASCULAR Cardiovascular: DENIES: Chest pain - RESPIRATORY Respiratory: REPORTS: Coughing. DENIES: Trouble Breathing - GASTROINTESTINAL Gastrointestinal: DENIES: Abdominal Pain, Nausea, Patient vomiting - REPRODUCTIVE Reproductive: DENIES: : - MUSCULOSKELETAL Musculoskeletal: DENIES: Extremity pain - DERM Skin Color: Normal Skin Problems: None Past Medical History - Social History Smoking Status: Never Smoker Family History: Arthritis, CVA, Hyperlipidemia, Hypertension, Malignancy. denies: CAD, COPD, DM, Thyroid Disfunction Pulmonary Medical History: Reports: Hx Bronchitis, Hx Pneumonia Neurological Medical History: Reports: Hx Migraine Renal/ Medical History: Denies: Hx Peritoneal Dialysis Musculoskeletal Medical History: Reports Hx Arthritis, Reports Hx Musculoskeletal Trauma Psychiatric Medical History: Reports: Hx Anxiety, Hx Depression - anxiety Traumatic Medical History: Reports: Hx Spine Fracture Past Surgical History: Reports: Hx Section, Hx Neurologic Surgery, Hx Orthopedic Surgery - C5-6 FUSION - Immunizations Immunizations up to date: Yes Hx Diphtheria, Pertussis, Tetanus Vaccination: Yes Vertical Provider Document - CONSTITUTIONAL Agree With Documented VS: Yes Exam Limitations: No Limitations General Appearance: No Apparent Distress - INFECTION CONTROL TRAVEL OUTSIDE OF THE [place] IN LAST 30 DAYS: No - HEENT HEENT: Atraumatic, PERRLA, Tympanic Membrane Red - Purulent drainage noted behind tympanic membrane. negative: Pharyngeal Exudate, Pharyngeal Erythema, Tympanic Membrane Bulging Notes: Nasal mucosa erythema and edema - NECK Neck: Normal Inspection - RESPIRATORY Respiratory: Breath Sounds Normal, No Respiratory Distress - CARDIOVASCULAR Cardiovascular: Regular Rate, Regular Rhythm Pulses: Normal: Radial - GI/ABDOMEN Gastrointestinal: Abdomen Soft - MUSCULOSKELETAL/EXTREMETIES Musculoskeletal/Extremeties: FROM - NEURO Level of Consciousness: Awake, Alert, Appropriate Motor/Sensory: No Motor Deficit, No Sensory Deficit - DERM Integumentary: Warm, Dry, No Rash Course - Re-evaluation Re-evalutation: Patient still has otitis media. I will put her on Cefdinir since she has failed Augmentin treatment. She will also be placed on Flonase and cetirizine to help with her rhinorrhea and postnasal drip. No mastoid process tenderness. Very low suspicion for mastoiditis. She will follow-up with her primary care provider. Follow-up precautions were given. Verbal discharge instructions were given to the patient. They verbalized understanding. They are stable for discharge. - Vital Signs Vital signs: Temp Pulse Resp BP Pulse Ox 98.1 F 87 16 134/75 H 98 08/06/19 14:27 08/06/19 14:27 08/06/19 14:27 08/06/19 14:27 08/06/19 14:27 Discharge - Discharge Clinical Impression: Rhinorrhea Acute otitis media Qualifiers: Otitis media type: mucoid Laterality: bilateral Qualified Code(s): H65.113 - Acute and subacute allergic otitis media (mucoid) (sanguinous) (serous), bilateral Condition: Stable Disposition: HOME, SELF-CARE Instructions: Otitis Media ([facility]) Additional Instructions: You were seen today for ear pain and have an acute ear infection. Please take the antibiotic that has been prescribed until it is completed even if you are feeling better before you have finished all the antibiotics. Please continue your Augmentin. For your pain: Take ibuprofen 600 mg and acetaminophen 1000 mg every 6 hours together as needed for pain. Return if you have worsening of your pain, loss of hearing in the affected ear, worsening facial pain, headaches, p ass out, or any other symptoms that are worrisome to you. You are also being started on cetirizine and fluticasone. Please take these as directed. Follow-up with your primary care provider. Prescriptions: Cetirizine HCl [All Day Allergy] 10 mg PO DAILY #30 tablet Fluticasone Propionate [Flonase Nasal [place] 50 Mcg/[place] 16 gm] 2 sprays NASL DAILY #1 inhaler Cefdinir [Omnicef 300 mg Capsule] 1 cap PO BID #14 capsule Forms: Return to Work Referrals: AARTI PRESLEY PA-C [Primary Care Provider] - Follow up in 3-5 days
== END 2019-08-06 15:45 | disposition home or self-care (01) ==
LOC: ER 14:25
DX: H65.113 Acute and subacute allergic otitis media (mucoid) (sanguinous) (serous), bilateral (principal); J34.89 Other specified disorders of nose and nasal sinuses; H92.01 Otalgia, right ear; R05 Cough; R50.9 Fever, unspecified; J02.9 Acute pharyngitis, unspecified; R09.89 Other specified symptoms and signs involving the circulatory and respiratory systems
CPT/HCPCS: 99282; 96372; J3490; J0696; J1100

== ENCOUNTER 2019-11-03 10:08 | Emergency (ER) | payer OTHER ==
--- NOTE | 2019-11-03 10:47 | ER Document Report ---
ED Medical Screen (RME) - General Chief Complaint: Fall Stated Complaint: FALL/ARM PAIN Time Seen by Provider: 11/03/19 10:41 Primary Care Provider: AARTI PRESLEY PA-C [Primary Care Provider] - Follow up as needed Mode of Arrival: Ambulatory Information source: Patient Notes: 39-year-old female patient presenting to the emergency department with pain to her left shoulder, elbow and wrist after falling. Patient reports she fell last week and then also fell again yesterday. 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 She states that she also has numbness and tingling into her left arm. Denies any other symptoms. Exam: Strong radial pulse. Unequal dietetic aide strength due to pain. Cap refill less than 3 seconds. I have greeted and performed a rapid initial assessment of this patient. A comprehensive ED assessment and evaluation of the patient, analysis of test results and completion of the medical decision making process will be conducted by additional ED providers. I have specifically instructed the patient or family members with the patient to immediately return to any nursing staff should anything change in the patient's condition or with their chief complaint. This medical record was dictated with voice recognizing software. There may be grammatical, syntax errors that are unintended. TRAVEL OUTSIDE OF THE [place] IN LAST 30 DAYS: No - Related Data Allergies/Adverse Reactions: iodine [Iodine] Allergy (Verified 11/03/19 10:40) Past Medical History Pulmonary Medical History: Reports: Hx Bronchitis, Hx Pneumonia Neurological Medical History: Reports: Hx Migraine Renal/ Medical History: Denies: Hx Peritoneal Dialysis Musculoskeltal Medical History: Reports Hx Arthritis, Reports Hx Musculoskeletal Trauma Psychiatric Medical History: Reports: Hx Anxiety, Hx Depression - anxiety Traumatic Medical History: Reports: Hx Spine Fracture Past Surgical History: Reports: Hx Section, Hx Neurologic Surgery, Hx Orthopedic Surgery - C5-6 FUSION - Immunizations Immunizations up to date: Yes Hx Diphtheria, Pertussis, Tetanus Vaccination: Yes Physical Exam - Vital signs Vitals: Temp Pulse Resp BP Pulse Ox 97.5 F 78 18 148/95 H 99 11/03/19 10:20 11/03/19 10:20 11/03/19 10:20 11/03/19 10:20 11/03/19 10:20 Course - Vital Signs Vital signs: Temp Pulse Resp BP Pulse Ox 97.5 F 78 18 148/95 H 99 11/03/19 10:44 11/03/19 10:44 11/03/19 10:44 11/03/19 10:44 11/03/19 10:44 Doctor's Discharge - Discharge Referrals: AARTI PRESLEY PA-C [Primary Care Provider] - Follow up as needed
--- NOTE | 2019-11-03 11:39 | RADIOLOGY REPORT (SQ) ---
EXAM DESCRIPTION: ELBOW LEFT OVER 2 VIEWS COMPLETED DATE/TIME: 11/03/2019 11:25 am REASON FOR STUDY: fall, L arm pain shoulder to wrist, severe COMPARISON: None. NUMBER OF VIEWS: Four views. TECHNIQUE: AP, lateral, and both oblique radiographic images acquired of the left elbow. LIMITATIONS: None. FINDINGS: MINERALIZATION: Normal. BONES: No acute fracture or dislocation. No worrisome bone lesions. JOINT: No effusion. SOFT TISSUES: No soft tissue swelling. No foreign body. OTHER: No other significant finding. IMPRESSION: NEGATIVE STUDY OF THE LEFT ELBOW. NO RADIOGRAPHIC EVIDENCE OF ACUTE INJURY. TECHNICAL DOCUMENTATION: JOB ID: [id number] [employer]- All Rights Reserved Reading location - IP/workstation name: [email or web address]
--- NOTE | 2019-11-03 11:39 | RADIOLOGY REPORT (SQ) ---
EXAM DESCRIPTION: WRIST LEFT 3 VIEWS COMPLETED DATE/TIME: 11/03/2019 11:25 am REASON FOR STUDY: fall, L arm pain shoulder to wrist, severe COMPARISON: None. NUMBER OF VIEWS: Three views. TECHNIQUE: AP, lateral, and oblique radiographic images acquired of the left wrist. LIMITATIONS: None. FINDINGS: MINERALIZATION: Normal. BONES: No acute fracture or dislocation. No worrisome bone lesions. Normal alignment. SOFT TISSUES: No soft tissue swelling. No foreign body. OTHER: No other significant finding. IMPRESSION: NEGATIVE STUDY OF THE LEFT WRIST. NO RADIOGRAPHIC EVIDENCE OF ACUTE INJURY. TECHNICAL DOCUMENTATION: JOB ID: [id number] [employer]- All Rights Reserved Reading location - IP/workstation name: [email or web address]
--- NOTE | 2019-11-03 11:40 | RADIOLOGY REPORT (SQ) ---
EXAM DESCRIPTION: SHOULDER LEFT 2 OR MORE VIEWS COMPLETED DATE/TIME: 11/03/2019 11:25 am REASON FOR STUDY: fall, L arm pain shoulder to wrist, severe COMPARISON: 09/22/2017 NUMBER OF VIEWS: Three views. TECHNIQUE: Internal rotation, external rotation, and Y view images acquired of the left shoulder. LIMITATIONS: None. FINDINGS: MINERALIZATION: Normal. BONES: No acute fracture. No worrisome bone lesions. JOINTS: No dislocation. VISUALIZED LUNGS AND RIBS: No pneumothorax. No rib fracture. SOFT TISSUES: No radiopaque foreign body. OTHER: Partially visualized cervical fusion hardware. IMPRESSION: NEGATIVE STUDY OF THE LEFT SHOULDER. NO RADIOGRAPHIC EVIDENCE OF ACUTE INJURY. TECHNICAL DOCUMENTATION: JOB ID: [id number] [employer]- All Rights Reserved Reading location - IP/workstation name: [email or web address]
--- NOTE | 2019-11-03 11:52 | ER Document Report ---
HPI - HPI Time Seen by Provider: 11/03/19 10:41 Pain Level: 5 Notes: 39-year-old female patient presenting to the emergency department with pain to her left shoulder, elbow and wrist after falling. Patient reports she fell last week and then also fell again yesterday. 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 She states that she also has numbness and tingling into her left arm. Denies any other symptoms. - REPRODUCTIVE LMP: 8 years ago Reproductive: DENIES: : Past Medical History - General Information source: Patient - Social History Smoking Status: Never Smoker Chew tobacco use (# tins/day): No Frequency of alcohol use: None Drug Abuse: None Family History: Arthritis, CVA, Hyperlipidemia, Hypertension, Malignancy. denies: CAD, COPD, DM, Thyroid Disfunction Patient has suicidal ideation: No Patient has homicidal ideation: No Pulmonary Medical History: Reports: Hx Bronchitis, Hx Pneumonia Neurological Medical History: Reports: Hx Migraine Renal/ Medical History: Denies: Hx Peritoneal Dialysis Musculoskeletal Medical History: Reports Hx Arthritis, Reports Hx Musculoskeletal Trauma Psychiatric Medical History: Reports: Hx Anxiety, Hx Depression - anxiety Traumatic Medical History: Reports: Hx Spine Fracture Past Surgical History: Reports: Hx Section, Hx Neurologic Surgery, Hx Orthopedic Surgery - C5-6 FUSION - Immunizations Immunizations up to date: Yes Hx Diphtheria, Pertussis, Tetanus Vaccination: Yes Vertical Provider Document - CONSTITUTIONAL Notes: PHYSICAL EXAMINATION: GENERAL: Well-appearing, well-nourished and in no acute distress. HEAD: Atraumatic, normocephalic. EYES: Pupils equal round extraocular movements intact, conjunctiva are normal. ENT: Nares patent NECK: Normal range of motion LUNGS: No respiratory distress Musculoskeletal: Limited range of motion of the left shoulder with abduction, no obvious deformity, crepitus noted. Strong radial pulse, cap refill less than 3 seconds, normal motor and sensation distal to shoulder. NEUROLOGICAL: Normal speech, normal gait. PSYCH: Normal mood, normal affect. SKIN: Warm, Dry, normal turgor, no rashes or lesions noted. - INFECTION CONTROL TRAVEL OUTSIDE OF THE [place] IN LAST 30 DAYS: No Course - Re-evaluation Re-evalutation: X-rays are negative for any acute findings. Likely internal shoulder injury versus contusion. Patient given follow-up with orthopedics. She was placed in a sling for comfort. 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 A work note was given to clear her out of work for the rest of the week. She will follow-up with primary care and Ortho. Patient given conservative precautions to help manage her pain. - Vital Signs Vital signs: Temp Pulse Resp BP Pulse Ox 97.5 F 78 18 148/95 H 99 11/03/19 10:44 11/03/19 10:44 11/03/19 10:44 11/03/19 10:44 11/03/19 10:44 Procedures - Immobilization Left arm Pre-Proc Neuro Vasc Exam: Normal Immobilizer type: Sling Performed by: PCT Post-Proc Neuro Vasc Exam: Normal Discharge - Discharge Clinical Impression: Left arm pain Fall with injury Qualifiers: Encounter type: initial encounter Qualified Code(s): W19.XXXA - Unspecified fall, initial encounter Condition: Stable Disposition: HOME, SELF-CARE Additional Instructions: The x-rays taken of your left arm to include shoulder, elbow and wrist do not show any acute fractures or dislocations of the bones. It is possible that you have contusion and/or strains in the arm from the fall. My recommendation is to take ibuprofen 600 mg every 6 hours, take acetaminophen 650 mg every 4 hours, ice and elevate your arm, give it some rest. Wear the sling as directed. If pain not improving over the next 3 to 5 days follow-up with orthopedics as they will be able to do a little more of a comprehensive work-up as that is their specialty. Forms: Return to Work Referrals: RICHY HIGGINBOTHAM MD [ACTIVE STAFF] - Follow up as needed ADWOA LOAIZA JR, DO [ACTIVE PROVISIONAL STAFF] - Follow up as needed
[2019-11-03 12:21] VITALS: BP 136/74
== END 2019-11-03 12:16 | disposition home or self-care (01) ==
LOC: ER 10:08
DX: T14.90XA Injury, unspecified, initial encounter (principal); M79.602 Pain in left arm; M25.512 Pain in left shoulder; M25.522 Pain in left elbow; M25.532 Pain in left wrist; W19.XXXA Unspecified fall, initial encounter; R20.0 Anesthesia of skin; R20.2 Paresthesia of skin
CPT/HCPCS: 99283

== ENCOUNTER 2019-12-28 14:24 | Emergency (ER) | payer OTHER ==
[2019-12-28 14:35] VITALS: BP 129/86
[2019-12-28] MEDS ORDERED: HYDROCODONE/ACETAMINOPHEN 5-325 MG TABLET PO ONE (14:58)
--- NOTE | 2019-12-28 15:00 | ER Document Report ---
ED Medical Screen (RME) - General Chief Complaint: Abdominal Pain Stated Complaint: ABDOMINAL PAIN Time Seen by Provider: 12/28/19 14:52 Primary Care Provider: AARTI PRESLEY PA-C [Primary Care Provider] - Follow up as needed Mode of Arrival: Ambulatory Information source: Patient Notes: Patient states that she had sudden onset of left lower back, left lower quadrant pain that started this afternoon. Patient states pain will radiate across entire lower abdomen but is primarily to the left lower side. Patient denies any urinary symptoms. Patient denies any nausea vomiting or diarrhea. Patient does report some vaginal discharge. I have greeted and performed a rapid initial assessment of this patient. A comprehensive ED assessment and evaluation of the patient, analysis of test results and completion of the medical decision making process will be conducted by additional ED providers. TRAVEL OUTSIDE OF THE [place] IN LAST 30 DAYS: No - Related Data Allergies/Adverse Reactions: iodine [Iodine] Allergy (Verified 11/03/19 10:40) Past Medical History - Social History Frequency of alcohol use: None Drug Abuse: None Pulmonary Medical History: Reports: Hx Bronchitis, Hx Pneumonia Neurological Medical History: Reports: Hx Migraine Renal/ Medical History: Denies: Hx Peritoneal Dialysis Musculoskeltal Medical History: Reports Hx Arthritis, Reports Hx Musculoskeletal Trauma Psychiatric Medical History: Reports: Hx Anxiety, Hx Depression - anxiety Traumatic Medical History: Reports: Hx Spine Fracture Past Surgical History: Reports: Hx Section, Hx Neurologic Surgery, Hx Orthopedic Surgery - C5-6 FUSION - Immunizations Immunizations up to date: Yes Hx Diphtheria, Pertussis, Tetanus Vaccination: Yes Physical Exam - Vital signs Vitals: Temp Pulse Resp BP Pulse Ox 97.9 F 84 16 129/86 H 97 12/28/19 14:33 12/28/19 14:33 12/28/19 14:33 12/28/19 14:33 12/28/19 14:33 - Abdominal Tenderness: Tender - Lower pelvic, worse the left side Course - Vital Signs Vital signs: Temp Pulse Resp BP Pulse Ox 97.9 F 84 16 129/86 H 97 12/28/19 14:33 12/28/19 14:33 12/28/19 14:33 12/28/19 14:33 12/28/19 14:33 Doctor's Discharge - Discharge Referrals: AARTI PRESLEY PA-C [Primary Care Provider] - Follow up as needed
[2019-12-28 16:24] LABS: ABSOLUTE BASOPHILS # (AUTO) 0.1 10^3/uL (0.0-0.2); ABSOLUTE EOSINOPHILS # (AUTO) 0.3 10^3/uL (0.0-0.6); ABSOLUTE LYMPHOCYTES (AUTO) 2.5 10^3/uL (0.5-4.7); ABSOLUTE MONOCYTES (AUTO) 0.5 10^3/uL (0.1-1.4); ABSOLUTE NEUT (AUTO) 7.8 10^3/uL (1.7-8.2); BASOPHILS % (AUTO) 0.6 % (0-2); EOSINOPHILS % (AUTO) 2.8 % (0-6); HEMATOCRIT 43.7 % (36.0-47.0); LYMPHOCYTES % (AUTO) 22.1 % (13-45); MEAN CORPUSCULAR HEMOGLOBIN 31.6 pg (27.0-33.4); MEAN CORPUSCULAR HGB CONC 34.4 g/dL (32.0-36.0); MEAN CORPUSCULAR VOLUME 92 fl (80-97); MONOCYTES % (AUTO) 4.7 % (3-13); PLATELET COUNT 227 10^3/uL (150-450); RED BLOOD COUNT 4.76 10^6/uL (3.72-5.28); RED CELL DISTRIBUTION WIDTH 12.8 % (11.5-14.0); SEGMENTED NEUTROPHILS % (AUTO) 69.8 % (42-78); TOTAL CELLS COUNTED % (AUTO) 100 %; WHITE BLOOD COUNT 11.2 10^3/uL (4.0-10.5)
[2019-12-28 16:38] LABS: APPEARANCE,URINE CLEAR; BILIRUBIN,URINE NEGATIVE (NEGATIVE); COLOR,URINE YELLOW; GLUCOSE, URINE NEGATIVE (NEGATIVE); KETONES,URINE NEGATIVE (NEGATIVE); LEUKOCYTE ESTERASE,URINE NEGATIVE (NEGATIVE); NITRITE,URINE NEGATIVE (NEGATIVE); PROTEIN,URINE NEGATIVE (NEGATIVE); URINE SPECIFIC GRAVITY 1.011; UROBILINOGEN,URINE NEGATIVE mg/dL (<2.0)
[2019-12-28 16:47] LABS: ALKALINE PHOSPHATASE 69 U/L (38-126); ANION GAP 8 (5-19); ASPARTATE AMINO TRANSFERASE 27 U/L (14-36); BILIRUBIN,DIRECT 0.3 mg/dL (0.0-0.4); BILIRUBIN,TOTAL 0.6 mg/dL (0.2-1.3); BLOOD UREA NITROGEN 15 mg/dL (7-20); CALCIUM 9.4 mg/dL (8.4-10.2); CARBON DIOXIDE 26 mmol/L (22-30); CHLORIDE 105 mmol/L (98-107); GLUCOSE 82 mg/dL (75-110); POTASSIUM 4.1 mmol/L (3.6-5.0); TOTAL PROTEIN 7.4 g/dL (6.3-8.2)
--- NOTE | 2019-12-28 17:59 | RADIOLOGY REPORT (SQ) ---
EXAM DESCRIPTION: U/S NON OB PEL TV W/DOPPLER COMPLETED DATE/TIME: 12/28/2019 5:28 pm REASON FOR STUDY: LLQ, pelvic pain COMPARISON: None. TECHNIQUE: Dynamic and static grayscale images acquired of the pelvis via transvaginal approach and recorded on PACS. Additional selected color Doppler and spectral images recorded. LIMITATIONS: None. FINDINGS: UTERUS: Contour normal. No mass. There are some small calcifications in the lower uterin e segment. ENDOMETRIAL STRIPE: An IUD is present. CERVIX: 2.3 cm. Slightly heterogeneous. RIGHT OVARY AND DOPPLER: Normal size. No worrisome masses. Normal arterial vascular flow without evid ence for torsion. LEFT OVARY AND DOPPLER: Ovary not seen. FREE FLUID: None noted. OTHER: No other significant finding. MEASUREMENTS: UTERUS: 8 x 4.6 x 5 cm. ENDOMETRIAL STRIPE: 11 mm. RIGHT OVARY: 2.9 x 3.4 x 2.8 cm. LEFT OVARY: Ovary not seen. IMPRESSION: IUD is in place. Some small calcifications a lower uterine segment may suggest small ca lcified fibroid. TECHNICAL DOCUMENTATION: JOB ID: [id number] [employer]- All Rights Reserved Rev-04/03 Reading location - IP/workstation name: [email or web address]
[2019-12-28] MEDS ORDERED: KETOROLAC TROMETHAMINE 60 MG/2 ML SDV IM ONE (19:27)
--- NOTE | 2019-12-28 20:34 | RADIOLOGY REPORT (SQ) ---
EXAM DESCRIPTION: CT abdomen and pelvis without contrast CLINICAL HISTORY: 39 years Female, right lower quadrant pain COMPARISON: None. TECHNIQUE: Axial images of the abdomen and pelvis were performed without the use of intravenous contrast, with sagittal and coronal reformatted images. This exam was performed according to our departmental dose-optimization program which includes use of Automated Exposure Control, adjustment of the mA and/or kV according to patient size and/or use of iterative reconstruction technique. FINDINGS: The appendix appears normal. There is possible fatty infiltration of the liver. There is an IUD in uterus. No evidence of bowel obstruction. There is no significant radiographic abnormality of the spleen, pancreas, adrenal glands or kidneys. No mass or adenopathy. No free air or free fluid. IMPRESSION: No acute finding. Other findings as described.
--- NOTE | 2019-12-28 20:55 | ER Document Report ---
ED General - General Chief Complaint: Abdominal Pain Stated Complaint: ABDOMINAL PAIN Time Seen by Provider: 12/28/19 14:52 Primary Care Provider: AARTI PRESLEY PA-C [Primary Care Provider] - Follow up as needed Mode of Arrival: Ambulatory Information source: Patient TRAVEL OUTSIDE OF THE [place] IN LAST 30 DAYS: No - HPI Notes: Patient presents with the sudden onset of severe pain in the right lower part of the abdomen and the right side of the mons pubis. She states that started suddenly about 1 PM. Is been constant. Nothing makes better or worse. No significant radiation of the pain. It is sharp. She states she does not have a history of kidney stones. She has had some mild vaginal discharge otherwise no bleeding. She states she is not . She had no vomiting or diarrhea. No fevers. She denies any trauma. - Related Data Allergies/Adverse Reactions: iodine [Iodine] Allergy (Verified 11/03/19 10:40) Past Medical History - General Information source: Patient - Social History Smoking Status: Current Every Day Smoker Frequency of alcohol use: None Drug Abuse: None Family History: Arthritis, CVA, Hyperlipidemia, Hypertension, Malignancy. denies: CAD, COPD, DM, Thyroid Disfunction Patient has suicidal ideation: No Patient has homicidal ideation: No Pulmonary Medical History: Reports: Hx Bronchitis, Hx Pneumonia Neurological Medical History: Reports: Hx Migraine Renal/ Medical History: Denies: Hx Peritoneal Dialysis Musculoskeletal Medical History: Reports Hx Arthritis, Reports Hx Musculoskeletal Trauma Psychiatric Medical History: Reports: Hx Anxiety, Hx Depression - anxiety Traumatic Medical History: Reports: Hx Spine Fracture Past Surgical History: Reports: Hx Section, Hx Neurologic Surgery, Hx Orthopedic Surgery - C5-6 FUSION - Immunizations Immunizations up to date: Yes Hx Diphtheria, Pertussis, Tetanus Vaccination: Yes Review of Systems - Review of Systems Constitutional: denies: Chills, Fever Cardiovascular: denies: Chest pain, Palpitations Respiratory: denies: Cough, Short of breath -: Yes All other systems reviewed and negative Physical Exam - Vital signs Vitals: Temp Pulse Resp BP Pulse Ox 97.9 F 84 16 129/86 H 97 12/28/19 14:33 12/28/19 14:33 12/28/19 14:33 12/28/19 14:33 12/28/19 14:33 Interpretation: Normal - General General appearance: Appears well, Alert - HEENT Head: Normocephalic, Atraumatic Eyes: Normal Pupils: PERRL - Respiratory Respiratory status: No respiratory distress Chest status: Nontender Breath sounds: Normal Chest palpation: Normal - Cardiovascular Rhythm: Regular Heart sounds: Normal auscultation Murmur: No - Abdominal Inspection: Normal Distension: No distension Bowel sounds: Normal Tenderness: Tender - Mild tenderness to the right side of the mons pubis. Inspection of this area is unremarkable. There are no masses in this area. Organomegaly: No organomegaly - Back Back: Normal, Nontender - Extremities General upper extremity: Normal inspection, Nontender, Normal color, Normal ROM, Normal temperature General lower extremity: Normal inspection, Nontender, Normal color, Normal ROM, Normal temperature, Normal weight bearing. No: Haley's sign - Neurological Neuro grossly intact: Yes Cognition: Normal Orientation: AAOx4 [place] Coma Scale Eye Opening: Spontaneous [place] Coma Scale Verbal: Oriented [place] Coma Scale Motor: Obeys Commands Tessy Coma Scale Total: 15 Speech: Normal Motor strength normal: LUE, RUE, LLE, RLE Sensory: Normal - Psychological Associated symptoms: Normal affect, Normal mood - Skin Skin Temperature: Warm Skin Moisture: Dry Skin Color: Normal Course - Re-evaluation Re-evalutation: 12/28/19 20:51 Patient presents with the sudden onset of severe pain on the right side of the mons pubis right inguinal area. I cannot find any explanation for the pain. Her vital signs are stable. Labs are unremarkable other than a mildly elevated white blood cell count. Ultrasound and CT provide no explanation for the pain. I will discharge the patient home with pain medication and have her follow-up with her family physician. - Vital Signs Vital signs: Temp Pulse Resp BP Pulse Ox 97.9 F 84 16 129/86 H 97 12/28/19 14:33 12/28/19 14:33 12/28/19 14:33 12/28/19 14:33 12/28/19 14:33 - Laboratory Result Diagrams: 12/28/19 15:45 12/28/19 15:45 Laboratory results interpreted by me: 12/28/19 15:45 WBC 11.2 H - Diagnostic Test Radiology reviewed: Image reviewed, Reports reviewed Discharge - Discharge Clinical Impression: Pelvic pain Condition: Stable Disposition: HOME, SELF-CARE Additional Instructions: Please call your family doctor first thing in the morning to arrange follow-up. Prescriptions: Hydrocodone/Acetaminophen [[place] 5-325 mg Tablet] 1 tab PO Q6 PRN 3 Days #12 tablet PRN Reason: Forms: Return to Work Referrals: AARTI PRESLEY PA-C [Primary Care Provider] - Follow up tomorrow
== END 2019-12-28 21:00 | disposition home or self-care (01) ==
LOC: ER 14:24
DX: R10.2 Pelvic and perineal pain (principal); N89.8 Other specified noninflammatory disorders of vagina; D72.829 Elevated white blood cell count, unspecified; F17.200 Nicotine dependence, unspecified, uncomplicated
CPT/HCPCS: 36415; 84703; 85025; 80053; 81001; 76830; 93976; 74176; J1885; 96372; 99284

== ENCOUNTER 2020-01-26 02:55 | Emergency (ER) | payer OTHER ==
[2020-01-26] MEDS ORDERED: CEFUROXIME 500 MG TABLET PO ONE (04:08)
[2020-01-26] MEDS ORDERED: DEXAMETHASONE SOD PHOS INJ 10 MG/1 ML VIAL IM ONE (04:08)
--- NOTE | 2020-01-26 04:10 | ER Document Report ---
ED General - General Chief Complaint: Cough Stated Complaint: EAR/THROAT/CHEST PAIN Time Seen by Provider: 01/26/20 03:54 Primary Care Provider: AARTI PRESLEY PA-C [Primary Care Provider] - Follow up as needed Notes: 40-year-old woman presents to the emergency department with a complaint of right ear pain and fullness with associated nasal congestion and drainage. She was seen by her primary care doctor approximately 2 weeks ago at that time treated with amoxicillin and oral decongestants. She states that her symptoms improved slightly, however, over the past 3 to 4 days she feels the congestion is worse and the ear pain has worsened. She denies fever, nosebleed or associated dizziness. TRAVEL OUTSIDE OF THE [place] IN LAST 30 DAYS: No - Related Data Allergies/Adverse Reactions: iodine [Iodine] Allergy (Verified 11/03/19 10:40) Home Medications: mucinex,. flonase. Amoxicillan. cetirizine Past Medical History - Social History Smoking Status: Former Smoker Chew tobacco use (# tins/day): No Frequency of alcohol use: None Drug Abuse: None Family History: Arthritis, CVA, Hyperlipidemia, Hypertension, Malignancy. denies: CAD, COPD, DM, Thyroid Disfunction Patient has suicidal ideation: No Patient has homicidal ideation: No Pulmonary Medical History: Reports: Hx Bronchitis, Hx Pneumonia Neurological Medical History: Reports: Hx Migraine Renal/ Medical History: Denies: Hx Peritoneal Dialysis Musculoskeletal Medical History: Reports Hx Arthritis, Reports Hx Musculoskeletal Trauma Psychiatric Medical History: Reports: Hx Anxiety, Hx Depression - anxiety Traumatic Medical History: Reports: Hx Spine Fracture Past Surgical History: Reports: Hx Section, Hx Neurologic Surgery, Hx Orthopedic Surgery - C5-6 FUSION - Immunizations Immunizations up to date: Yes Hx Diphtheria, Pertussis, Tetanus Vaccination: Yes Review of Systems - Review of Systems Notes: Constitutional: Negative for fever. HENT:+Sore throat,+ right ear pain, + congestion Eyes: Negative for visual changes. Cardiovascular: Negative for chest pain. Respiratory: + Cough, no shortness of breath. Gastrointestinal: Negative for abdominal pain, vomiting or diarrhea. Genitourinary: Negative for dysuria. Musculoskeletal: Negative for back pain. Skin: Negative for rash. Neurological: Negative for headaches, weakness or numbness. 10 point ROS negative except as marked above and in HPI. Physical Exam - Vital signs Vitals: Temp Pulse Resp BP Pulse Ox 98.2 F 78 18 135/79 H 96 01/26/20 03:07 01/26/20 03:07 01/26/20 03:07 01/26/20 03:07 01/26/20 03:07 - Notes Notes: PHYSICAL EXAMINATION: Physical Exam: General: Well-nourished well-developed 40-year-old woman in no acute distress HEENT: NC/AT, pupils equal round and reactive to light, MM moist,nares congestion, TM air-fluid level bilateral, right TM with erythema and poor markings. oropharynx clear, airway patent Neck: supple, no adenopathy, no masses. Good range of motion Lungs: clear, no wheezing, no rales no rhonchi CVS: Regular rate and rhythm no murmur gallop or rub Abdomen: Soft, active, nontender, no masses, no hepatosplenomegaly Ext: No edema, clubbing or cyanosis. Neuro: Alert and responsive, moving all 4 extremities on command, cranial nerves intact, no focal findings Skin: Intact no open lesions, no rash PSYCH: Normal mood, normal affect. Course - Re-evaluation Re-evalutation: 01/26/20 04:07 Patient presents with acute on chronic otitis media and secondary congestion and drainage. She also has cough productive of yellow sputum, denies fever or shortness of breath. 01/26/20 04:40 Chest x-ray is negative. - Vital Signs Vital signs: Temp Pulse Resp BP Pulse Ox 98.2 F 78 18 135/79 H 96 01/26/20 03:07 01/26/20 03:07 01/26/20 03:07 01/26/20 03:07 01/26/20 03:07 - Diagnostic Test Radiology reviewed: Image reviewed, Reports reviewed - Chest x-ray: No infiltrate, no effusion. Discharge - Discharge Clinical Impression: Bronchitis Right otitis media Qualifiers: Otitis media type: unspecified Qualified Code(s): H66.91 - Otitis media, unspecified, right ear Pharyngitis Qualifiers: Pharyngitis/tonsillitis etiology: unspecified etiology Qualified Code(s): J02.9 - Acute pharyngitis, unspecified Condition: Good Disposition: HOME, SELF-CARE Instructions: Bronchitis ([facility]), Otitis Media ([facility]) Additional Instructions: You are diagnosed with right ear infection and sore throat with upper res piratory symptoms. A change of antibiotics were made and a steroid dose is given. Please follow-up with your primary care doctor as needed. If your symptoms are worsening or if you have other concerns you may return to the emergency department. HOME CARE INSTRUCTIONS & INFORMATION: Thank you for choosing us for your medical needs. We hope you're satisfied with the care you received. After you leave, you must properly care for your problem and, at the same time, observe its progress. Any condition can change. Some illnesses can change rapidly over hours or days. If your condition worsens, return to the Emergency Department or see your physician promptly. ABOUT YOUR X-RAYS AND EKG'S: If you had an EKG or X-rays taken, they have been read by the Emergency Physician. The X-rays and EKG's will also be read by a Radiologist or Manager New Product within 24 hours. If discrepancies are noted, you will be notified by telephone. Please be certain the ED has a correct telephone number & address where you can be reached. Also, realize that some fractures or abnormalities do not show up on initial X-rays. If your symptoms continue, see your physician. ABOUT YOUR LABORATORY TEST: If you had laboratory tests, the results have been reviewed by the Emergency Physician. Some test results (for example cultures) may not be available for several days. You will be contacted if any test result shows you need additional treatment. Please be certain the ED has a correct telephone number and address where you can be reached. ABOUT YOUR MEDICATIONS: You will receive instructions on how to take your medicine on the prescription label you receive. Additional information may be provided by the Pharmacy. If you have questions afterwards, call the ED for clarification or further instructions. Some prescribed medications may cause drowsiness. Do not perform tasks such as driving a car or operating machinery without consulting your Pharmacist. If you feel you need a refill of pain medication, your condition will need re-evaluation. Please do not call for a refill of any medication. ABOUT YOUR SIGNATURE: Signature of this document acknowledges to followin. Understanding that you received emergency treatment and that you may be released before al medical problems are known or treated. Please be certain the ED has a correct phone number & address where you can be reached. 2. Acknowledgement that you will arrange for follow-up care as recommended. 3. Authorization for the Emergency Physician to provide information to your follow-up Physician in order to maximize your care. AT ANY TIME, IF YOUR SYMPTOMS CHANGE SIGNIFICANTLY OR WORSEN OR YOU DEVELOP NEW SYMPTOMS, RETURN TO THE EMERGENCY DEPARTMENT IMMEDIATELY FOR RE-EVALUATION. OUR GOAL IS TO PROVIDE EXCELLENT MEDICAL CARE! WE HOPE THAT WE HAVE MET YOUR EXPECTATIONS DURING YOUR EMERGENCY DEPARTMENT VISIT AND THAT YOU FEEL YOU HAVE RECEIVED EXCELLENT CARE! Prescriptions: Cefdinir 300 mg PO BID #20 capsule Prednisone [Deltasone 20 mg Tablet] 1 tab PO BID 5 Days #10 tablet Referrals: AARTI PRESLEY PA-C [Primary Care Provider] - Follow up as needed
[2020-01-26] MEDS ORDERED: CEFUROXIME 500 MG TABLET ONE (04:23)
--- NOTE | 2020-01-26 05:28 | RADIOLOGY REPORT (SQ) ---
Chest one view on 01/26/2020 at 4:21 AM CLINICAL INDICATION: Cough COMPARISON: 02/27/2019 FINDINGS: The lungs are clear. Cardiac, hilar and mediastinal contours are within normal limits. Pulmonary vascularity is within normal limits. No bony abnormality is noted. IMPRESSION: No active disease.
[2020-01-26 05:39] VITALS: BP 104/62
== END 2020-01-26 05:39 | disposition home or self-care (01) ==
LOC: ER 02:55
DX: J02.9 Acute pharyngitis, unspecified (principal); H66.91 Otitis media, unspecified, right ear; J40 Bronchitis, not specified as acute or chronic; R05 Cough; H92.01 Otalgia, right ear; R09.81 Nasal congestion; Z79.899 Other long term (current) drug therapy; Z87.891 Personal history of nicotine dependence; Z88.8 Allergy status to other drugs, medicaments and biological substances
CPT/HCPCS: 99283; 96372; 71045; J3490; J1100

== ENCOUNTER → 2020-08-16 | Outpatient (CLI) | payer OTHER ==
--- NOTE | 2020-08-16 15:21 | RADIOLOGY REPORT (SQ) ---
EXAM DESCRIPTION: ELBOW RIGHT >2 VIEWS IMAGES COMPLETED DATE/TIME: 08/16/2020 2:44 pm REASON FOR STUDY: UNSPECIFIED INJURY OF RIGHT ELBOW, INITIAL ENCOUNTER S59.901A UNSPECIFIED INJURY OF RIGHT ELBOW, INITIAL ENCOUNTE S40.011S CONTUSION OF RIGHT SHOULDER, SEQUELA COMPARISON: None. NUMBER OF VIEWS: Four views. TECHNIQUE: AP, lateral, and both oblique radiographic images acquired of the right elbow. LIMITATIONS: None. FINDINGS: MINERALIZATION: Normal. BONES: No acute fracture or dislocation. No worrisome bone lesions. JOINT: No effusion. SOFT TISSUES: No soft tissue swelling. No foreign body. OTHER: No other significant finding. IMPRESSION: NEGATIVE STUDY OF THE RIGHT ELBOW. NO RADIOGRAPHIC EVIDENCE OF ACUTE INJURY. TECHNICAL DOCUMENTATION: JOB ID: [id number] 2010 [employer]- All Rights Reserved Reading location - IP/workstation name: [email or web address]
--- NOTE | 2020-08-16 15:21 | RADIOLOGY REPORT (SQ) ---
EXAM DESCRIPTION: SHOULDER RIGHT 2 OR MORE VIEWS IMAGES COMPLETED DATE/TIME: 08/16/2020 2:41 pm REASON FOR STUDY: CONTUSION OF RIGHT SHOULDER, SEQUELA S59.901A UNSPECIFIED INJURY OF RIGHT ELBOW, INITIAL ENCOUNTE S40.011S CONTUSION OF RIGHT SHOULDER, SEQUELA COMPARISON: None. NUMBER OF VIEWS: Three views. TECHNIQUE: Internal rotation, external rotation, and Y view images acquired of the right shoulder. LIMITATIONS: None. FINDINGS: MINERALIZATION: Normal. BONES: No acute fracture. No worrisome bone lesions. JOINTS: No dislocation. VISUALIZED LUNGS AND RIBS: No pneumothorax. No rib fracture. SOFT TISSUES: No radiopaque foreign body. OTHER: No other significant finding. IMPRESSION: NEGATIVE STUDY OF THE RIGHT SHOULDER. NO RADIOGRAPHIC EVIDENCE OF ACUTE INJURY. TECHNICAL DOCUMENTATION: JOB ID: [id number] 2010 [employer]- All Rights Reserved Reading location - IP/workstation name: [email or web address]
== END ==
LOC: OD 14:23
PROVIDERS: ATTEND Nurse Practitioner Acute Care
DX: S59.901A Unspecified injury of right elbow, initial encounter (principal); X58.XXXA Exposure to other specified factors, initial encounter

== ENCOUNTER 2020-11-23 22:50 | Emergency (ER) | payer OTHER ==
[2020-11-23] MEDS ORDERED: ONDANSETRON 4 MG TAB.RAPDIS PO ONE (23:37)
[2020-11-23] MEDS ORDERED: KETOROLAC TROMETHAMINE INJ/PF 30 MG/1 ML SDV IM ONE (23:37)
--- NOTE | 2020-11-23 23:39 | ER Document Report ---
ED Medical Screen (RME) - General Chief Complaint: Pain Stated Complaint: NECK PAIN Time Seen by Provider: 11/23/20 23:32 Primary Care Provider: RENEE WHITE NP [Primary Care Provider] - Follow up as needed Mode of Arrival: Ambulatory Information source: Patient TRAVEL OUTSIDE OF THE [place] IN LAST 30 DAYS: No - HPI Patient complains to provider of: Left shoulder and chest pain Notes: 11/23/20 23:38 Patient with complaints of left sided neck, shoulder, trapezius, chest pain. The pain is been going on for the last 3 days. Pain is worse with movement. Occasionally she feels nauseous and gets diaphoretic. She denies any significant shortness of breath. No fever. No trauma or injury. She is had prior C5/6 fusion. She denies any known history of hypertension, high cholesterol, diabetes, CAD. Complain of some numbness and tingling down the left arm as well. Exam: Nontoxic, no distress. Lungs cardiac with throughout. Heart sounds normal. Left lateral chest wall tenderness to palpation. Mild tenderness to palpation of the left trapezius. Normal pulse and sensation distally to the left arm. An initial examination was made on the patient as part of the triage process, and it was determined a more comprehensive evaluation was necessary. Initial orders were placed and patient was transferred to another provider in the ED who assumed care and finished evaluation and plan. - Related Data Allergies/Adverse Reactions: iodine [Iodine] Allergy (Verified 11/03/19 10:40) Home Medications: flonase. amoxil for sinus inf. singulair. motrin 800 for this pain Past Medical History - Social History Chew tobacco use (# tins/day): No Frequency of alcohol use: None Drug Abuse: None Pulmonary Medical History: Reports: Hx Bronchitis, Hx Pneumonia Neurological Medical History: Reports: Hx Migraine Renal/ Medical History: Denies: Hx Peritoneal Dialysis Musculoskeltal Medical History: Reports Hx Arthritis, Reports Hx Musculoskeletal Trauma Psychiatric Medical History: Reports: Hx Anxiety, Hx Depression - anxiety Traumatic Medical History: Reports: Hx Spine Fracture Past Surgical History: Reports: Hx Section, Hx Neurologic Surgery, Hx Orthopedic Surgery - C5-6 FUSION - Immunizations Immunizations up to date: Yes Hx Diphtheria, Pertussis, Tetanus Vaccination: Yes Physical Exam - Vital signs Vitals: Temp Pulse Resp BP Pulse Ox 98.2 F 83 18 146/90 H 98 11/23/20 23:17 11/23/20 23:17 11/23/20 23:17 11/23/20 23:17 11/23/20 23:17 Course - Vital Signs Vital signs: Temp Pulse Resp BP Pulse Ox 98.2 F 83 18 146/90 H 98 11/23/20 23:17 11/23/20 23:17 11/23/20 23:17 11/23/20 23:17 11/23/20 23:17 Doctor's Discharge - Discharge Referrals: RENEE WHITE NP [Primary Care Provider] - Follow up as needed
[2020-11-24 01:12] LABS: ABSOLUTE BASOPHILS # (AUTO) 0.1 10^3/uL (0.0-0.2); ABSOLUTE EOSINOPHILS # (AUTO) 0.2 10^3/uL (0.0-0.6); ABSOLUTE LYMPHOCYTES (AUTO) 1.5 10^3/uL (0.5-4.7); ABSOLUTE MONOCYTES (AUTO) 0.4 10^3/uL (0.1-1.4); ABSOLUTE NEUT (AUTO) 4.6 10^3/uL (1.7-8.2); BASOPHILS % (AUTO) 0.7 % (0-2); EOSINOPHILS % (AUTO) 3.5 % (0-6); HEMATOCRIT 40.6 % (36.0-47.0); LYMPHOCYTES % (AUTO) 22.4 % (13-45); MEAN CORPUSCULAR HEMOGLOBIN 31.5 pg (27.0-33.4); MEAN CORPUSCULAR HGB CONC 34.5 g/dL (32.0-36.0); MEAN CORPUSCULAR VOLUME 91 fl (80-97); MONOCYTES % (AUTO) 6.3 % (3-13); PLATELET COUNT 198 10^3/uL (150-450); RED BLOOD COUNT 4.45 10^6/uL (3.72-5.28); RED CELL DISTRIBUTION WIDTH 12.7 % (11.5-14.0); SEGMENTED NEUTROPHILS % (AUTO) 67.1 % (42-78); TOTAL CELLS COUNTED % (AUTO) 100 %; WHITE BLOOD COUNT 6.8 10^3/uL (4.0-10.5)
--- NOTE | 2020-11-24 01:20 | RADIOLOGY REPORT (SQ) ---
EXAM DESCRIPTION: XR CHEST 1 VIEW COMPLETED DATE/TME: 11/24/2020 01:09 CLINICAL HISTORY: 40 years, Female, neck pain, left arm pain COMPARISON: January 26, 2020 NUMBER OF VIEWS: 1 TECHNIQUE: Single frontal view of the chest was obtained at 12:57 AM. LIMITATIONS: None. FINDINGS: Heart size is within normal limits. Lungs appear clear. There is no evidence of pleural effusion or pneumothorax. No definite acute bony abnormality is seen. IMPRESSION: No acute abnormality as above. copyright 2010 [employer]- All Rights Reserved
--- NOTE | 2020-11-24 01:21 | RADIOLOGY REPORT (SQ) ---
EXAM DESCRIPTION: CERV SP 4 OR 5 VIEWS [facility]: XR CERVICAL SPINE 4-5 VIEWS Views: 5 CLINICAL HISTORY: 40 years Female; neck pain, left arm pain; COMPARISON: None. FINDINGS: There is straightening of the normal cervical lordosis, but no focal subluxation. C5-C6 anterior fixation hardware is noted. No evidence for hardware loosening. There is also a fixation wire in the spinous processes of C5 and C6. Mild degenerative endplate changes at C4-C5, without disc space narrowing. Odontoid view is normal. No bony foraminal stenosis on oblique views. No acute fracture. No prevertebral edema. IMPRESSION: 1. No acute fracture or subluxation 2. C5-C6 fixation.
[2020-11-24 01:28] LABS: ALBUMIN 3.6 g/dL (3.5-5.0); ALKALINE PHOSPHATASE 61 U/L (38-126); ANION GAP 8 (5-19); ASPARTATE AMINO TRANSFERASE 25 U/L (14-36); BILIRUBIN,DIRECT 0.3 mg/dL (0.0-0.4); BILIRUBIN,TOTAL 0.6 mg/dL (0.2-1.3); BLOOD UREA NITROGEN 18 mg/dL (7-20); CALCIUM 9.2 mg/dL (8.4-10.2); CARBON DIOXIDE 23 mmol/L (22-30); CHLORIDE 110 mmol/L (98-107); GLUCOSE 109 mg/dL (75-110); POTASSIUM 4.1 mmol/L (3.6-5.0); TOTAL PROTEIN 6.7 g/dL (6.3-8.2)
[2020-11-24] MEDS ORDERED: ACETAMINOPHEN 325 MG TABLET PO ONE (06:08)
[2020-11-24] MEDS ORDERED: LIDOCAINE 5% (700 MG) TRANSDERMAL ADH..PATCH TP ONE (06:18)
[2020-11-24] MEDS ORDERED: KETOROLAC TROMETHAMINE 60 MG/2 ML SDV IM ONE (06:23)
--- NOTE | 2020-11-24 06:28 | ER Document Report ---
ED General - General Chief Complaint: Pain Stated Complaint: NECK PAIN Time Seen by Provider: 11/23/20 23:32 Primary Care Provider: RENEE WHITE NP [Primary Care Provider] - Follow up in 3-5 days RONY MUNIZ MD [ACTIVE PROVISIONAL STAFF] - Follow up in 3-5 days Mode of Arrival: Ambulatory TRAVEL OUTSIDE OF THE [place] IN LAST 30 DAYS: No - HPI Notes: Patient is a 40-year-old female with no significant past medical history except for cervical neck fusion who presents with left-sided trapezius pain. Patient states symptoms began several days ago. She states it is worse with palpation and movement. Patient denies any trauma. She is not left-handed. Patient drives a school bus. She denies any new activity or stress on the muscles. D enies any shortness of breath. No rashes. She states she has muscle relaxers at home but they normally do not work for her. She has had similar pain before in the past. Also feels like she has palpitations on occasion. - Related Data Allergies/Adverse Reactions: iodine [Iodine] Allergy (Verified 11/03/19 10:40) Home Medications: flonase. amoxil for sinus inf. singulair. motrin 800 for this pain Past Medical History - General Information source: Patient - Social History Smoking Status: Never Smoker Chew tobacco use (# tins/day): No Frequency of alcohol use: None Drug Abuse: None Family History: Arthritis, CVA, Hyperlipidemia, Hypertension, Malignancy. denies: CAD, COPD, DM, Thyroid Disfunction Pulmonary Medical History: Reports: Hx Bronchitis, Hx Pneumonia Neurological Medical History: Reports: Hx Migraine Renal/ Medical History: Denies: Hx Peritoneal Dialysis Musculoskeletal Medical History: Reports Hx Arthritis, Reports Hx Musculoskeletal Trauma Psychiatric Medical History: Reports: Hx Anxiety, Hx Depression - anxiety Traumatic Medical History: Reports: Hx Spine Fracture Past Surgical History: Reports: Hx Section, Hx Neurologic Surgery, Hx Orthopedic Surgery - C5-6 FUSION - Immunizations Immunizations up to date: Yes Hx Diphtheria, Pertussis, Tetanus Vaccination: Yes Review of Systems - Review of Systems Notes: CONSTITUTIONAL: No fever, fatigue or weight loss. SKIN: No rash. HENT: No congestion, ear pain, or sore throat. EYES: No recent vision problems or eye pain. CARDIOVASCULAR: Positive for left-sided back and chest pain. RESPIRATORY: No cough, shortness of breath, congestion, or wheezing. GASTROINTESTINAL: No abdominal pain, nausea, vomiting, bloody stools or diarrhea. NEUROLOGIC: No seizures. No headache, focal weakness or sensory changes. HEMATOLOGIC: No unusual bruising or bleeding. PSYCHIATRIC: No depression or anxiety. Physical Exam - Vital signs Vitals: Temp Pulse Resp BP Pulse Ox 98.2 F 83 18 146/90 H 98 11/23/20 23:17 11/23/20 23:17 11/23/20 23:17 11/23/20 23:17 11/23/20 23:17 - General General appearance: Appears well In distress: None Notes: VITAL SIGNS: Within normal limits. GENERAL: No acute distress, non-toxic appearance. HEAD: Normal with no signs of head trauma. EYES: Conjunctiva normal, no discharge. EARS: Hearing grossly intact. NOSE: Normal. NECK: Normal range of motion, no tenderness, supple, no lymphadenopathy, No adenopathy, no JVD. CHEST: Clear breath sounds bilaterally. No wheezes, rales, or rhonchi. CARDIAC: Regular rate and rhythm. S1 and S2, without murmurs, gallops, or rubs. VASCULAR: No Edema. Peripheral pulses normal and equal in all extremities. ABDOMEN: Normal and soft with no tenderness, no masses or pulsatile masses. MUSCULOSKELETAL: Good range of motion of all major joints. Worsening left trapezius pain with arm motion. No discomfort with motion of neck. No posterior cervical tenderness. No obvious rashes. Reproducible pain with palpation of left anterior chest and left trapezius. NEUROLOGICAL: Alert and oriented x 3. No focal sensory or strength deficits. Speech normal. Follows commands appropriately. PSYCHIATRIC: Normal Affect, judgement and mood. SKIN: Normal appearance with no rashes or lesions. Course - Re-evaluation Re-evalutation: 11/24/20 07:01 Patient symptoms appear to be very muscular as they are reproducible on palpation. She does not have a cardiac history. She is a non-smoker. She has no family history of cardiac disease. Her heart score is 1. her cardiac work-up was unremarkable. She was noted to have occasional PVCs. I discussed this with the patient. I told her she may need to see her PCP or rn admissions and wear a Holter monitor. Patient is very agreeable to this. She was prescribed a lidocaine patch. She was told she can take Tylenol or ibuprofen. Patient states Toradol did work for her in the ED. Patient was given strict return precautions. - Vital Signs Vital signs: Temp Pulse Resp BP Pulse Ox 98.3 F 80 20 127/84 H 100 11/24/20 06:49 11/24/20 06:49 11/24/20 06:49 11/24/20 06:49 11/24/20 06:49 - Laboratory Results Result Diagrams: 11/24/20 00:43 11/24/20 00:43 Laboratory Results Interpreted: 11/24/20 00:43 Chloride 110 H Critical Laboratory Results Reviewed: No Critical Results - Radiology Results Critical Radiology Results Reviewed: No Critical Results - EKG Interpretation by Me EKG shows normal: Sinus rhythm Rate: Normal Rhythm: PVC's When compared to previous EKG there are: Changes noted Additional EKG results interpreted by me: Sinus rhythm. Ventricular bigeminy. QTc 458. No acute ST changes. Discharge - Discharge Clinical Impression: Trapezius muscle spasm, PVC (premature ventricular contraction) Condition: Stable Disposition: HOME, SELF-CARE Instructions: Muscle Strain ([facility]), PVCs ([facility]) Additional Instructions: Your work-up today is reassuring. You do have occasional premature ventricular contractions on your EKG and monitor. Please follow-up with your family doctor. I also provide the number for rn admissions that you can follow-up with. You may need to wear a Holter monitor. You may use lidocaine patches for pain. You may also use Tylenol and ibuprofen. Please return to the ER immediately for any chest pain or worsening symptoms. 1 Prescriptions: Lidocaine [Lidoderm 5% (700 mg) Transdermal Patch] 1 patch TP DAILY #5 adh..patch Forms: Return to Work Referrals: RONY MUNIZ MD [ACTIVE PROVISIONAL STAFF] - Follow up in 3-5 days RENEE WHITE NP [Primary Care Provider] - Follow up in 3-5 days
[2020-11-24 07:06] VITALS: BP 124/84
--- NOTE | 2020-11-24 22:04 | EKG REPORT ---
SEVERITY:- ABNORMAL ECG - SINUS RHYTHM VENTRICULAR BIGEMINY BORDERLINE T ABNORMALITIES, INFERIOR LEADS : Confirmed by: Christopher Lay 24-Nov-2020 22:03:53
== END 2020-11-24 06:45 | disposition home or self-care (01) ==
LOC: ER 22:50
DX: M62.830 Muscle spasm of back (principal); I49.3 Ventricular premature depolarization; R07.9 Chest pain, unspecified; J32.9 Chronic sinusitis, unspecified; Z79.899 Other long term (current) drug therapy; Z98.1 Arthrodesis status
CPT/HCPCS: 93005; 99285; 96372; 36415; 85025; 80053; 84484; 72050; 71045; 93010; J1885 ×2; S0119